=== PATIENT | female | born 1985 | race Caucasian/White ===

== ENCOUNTER 2017-01-30 13:46 | Emergency (ER) | payer BC ==
[2017-01-30] MEDS ORDERED: Sodium Chloride 0.9% 1,000 ML IV ONE ×2 (14:05→14:34)
[2017-01-30] MEDS ORDERED: LORazepam 2 MG/ML MDV IVPUSH ONE (14:05)
[2017-01-30] MEDS ORDERED: Ketorolac 30 MG/ML SDV IVPUSH ONE (14:34)
[2017-01-30] MEDS ORDERED: Ondansetron 4 MG/2 ML SDV IVPUSH ONE (14:34)
--- NOTE | 2017-01-30 14:35 | EDM.PDOC ---
ED HPI GENERAL MEDICAL PROBLEM - General Chief Complaint: Abdominal Pain Stated Complaint: ABDOMINAL PAIN Time Seen by Provider: 01/30/17 14:20 Source of Information: Reports: Patient History Limitations: Reports: No Limitations - History of Present Illness INITIAL COMMENTS - FREE TEXT/NARRATIVE: History of present illness: [1-year-old female comes in with a myriad of complaints. Indicates that she's having lower pelvic pain radiating into her abdomen that this has been ongoing. Patient indicates she also has significant depression that they're trying to find a medication that works for her as well as some amount of anxiety and infertility. Patient indicates that she is seeing multiple providers for this and when she was complaining of the abdominal pain she was directed to come to the ED for further evaluation.] Review of systems: As per history of present illness and below otherwise all systems reviewed and negative. Past medical history: As per history of present illness and as reviewed below otherwise noncontributory. Surgical history: As per history of present illness and as reviewed below otherwise noncontributory. Social history: No reported history of drug or alcohol abuse. Family history: As per history of present illness and as reviewed below otherwise noncontributory. Physical exam: HEENT: Atraumatic, normocephalic, pupils reactive, negative for conjunctival pallor or scleral icterus, mucous membranes moist, throat clear, neck supple, nontender, trachea midline. Lungs: Clear to auscultation, breath sounds equal bilaterally, chest nontender. Heart: S1S2, regular, negative for clicks, rubs, or JVD. Abdomen: Soft, nondistended, nontender. Negative for masses or hepatosplenomegaly. Negative for costovertebral tenderness. Pelvis: Stable nontender. Genitourinary: Deferred. Rectal: Deferred. Extremities: Atraumatic, negative for cords or calf pain. Neurovascular unremarkable. Neuro: Awake, alert, oriented. Cranial nerves II through XII unremarkable. Cerebellum unremarkable. Motor and sensory unremarkable throughout. Exam nonfocal. CT is negative save the presence of an ovarian cyst in the right adnexa Diagnostics: [CBC, CMP, UA, urine hCG, CT of abdomen] Therapeutics: [IV fluid, Toradol, Zofran] Impression: [Abdominal pain] Plan: [OTC pain meds] Definitive disposition and diagnosis as appropriate pending reevaluation and review of above. Chest Pain Score (Numeric/FACES): 6 epigastric pain Pain Score (Numeric/FACES): 8 - Related Data Allergies Allergy/AdvReac Type Severity Reaction Status Date / Time No Known Allergies Allergy Verified 01/30/17 13:56 Home Meds: Home Meds ClonazePAM [KlonoPIN] 0.5 mg PO BID PRN 01/30/17 [History] Methocarbamol [Robaxin] 500 mg PO TID 01/30/17 [History] PARoxetine HCl [Paroxetine HCl] 10 mg PO DAILY 01/30/17 [History] hydrOXYzine Pamoate [Hydroxyzine Pamoate] 25 mg PO QID PRN 01/30/17 [History] Past Medical History - Past Health History Medical/Surgical History: Denies Medical/Surgical History Gastrointestinal History: Reports: Other (See Below) Other Gastrointestinal History: epigastric pain 1 month Genitourinary History: Reports: None - Past Surgical History GI Surgical History: Reports: None Female Surgical History: Reports: LEEP Social & Family History - Family History Family Medical History: Noncontributory - Tobacco Use Smoking Status *Q: Never Smoker Years of Tobacco use: 15 Used Tobacco, but Quit: Yes Month Tobacco Last Used: 1 Second Hand Smoke Exposure: Yes - Caffeine Use Caffeine Use: Reports: None - Alcohol Use Days Per Week of Alcohol Use: 0 Number of Drinks Per Day: 0 Total Drinks Per Week: 0 - Recreational Drug Use Recreational Drug Use: No Drug Use in Last 12 Months: No Recreational Drug Type: Reports: Marijuana/Hashish ED ROS GENERAL - Review of Systems Review Of Systems: See Below (See history of present illness) ED EXAM, GI/ABD - Physical Exam Exam: See Below (See history of present illness) Course - Vital Signs Last Recorded V/S: Last Vital Signs Temp 37.0 C 01/30/17 13:56 Pulse 89 01/30/17 15:58 Resp 16 01/30/17 15:58 BP 120/79 01/30/17 15:58 Pulse Ox 99 01/30/17 15:58 - Orders/Labs/Meds Orders: Active Orders 24 hr Category Date Time Status EKG Documentation Completion [RC] STAT Care 01/30/17 14:04 Active Abdomen Pelvis w Cont [CT] Stat Exams 01/30/17 14:34 Taken Labs: Laboratory Tests 01/30/17 01/30/1701/30/17 Range/Units 14:08 14:08 14:08 WBC 7.16 (4.0-11.0) K/uL RBC 4.29 L (4.30-5.90) M/uL Hgb 12.7 (12.0-16.0) g/dL Hct 37.2 (36.0-46.0) % MCV 86.7 (80.0-98.0) fL MCH 29.6 (27.0-32.0) pg MCHC 34.1 (31.0-37.0) g/dL RDW Std Deviation 39.3 (28.0-62.0) fl RDW Coeff of Javier 12 (11.0-15.0) % Plt Count 226 (150-400) K/uL MPV 9.20 (7.40-12.00) fL Neut % (Auto) 64.0 (48.0-80.0) % Lymph % (Auto) 29.3 (16.0-40.0) % [place] % (Auto) 6.1 (0.0-15.0) % Eos % (Auto) 0.3 (0.0-7.0) % Baso % (Auto) 0.3 (0.0-1.5) % Neut # (Auto) 4.6 (1.4-5.7) K/uL Lymph # (Auto) 2.1 (0.6-2.4) K/uL [place] # (Auto) 0.4 (0.0-0.8) K/uL Eos # (Auto) 0.0 (0.0-0.7) K/uL Baso # (Auto) 0.0 (0.0-0.1) K/uL Nucleated RBC % 0.0 /100WBC Nucleated RBCs # 0 K/uL Sodium 140 (136-146) mmol/L Potassium 3.7 (3.5-5.1) mmol/L Chloride 109 (98-110) mmol/L Carbon Dioxide 22 (21-31) mmol/L BUN 15 (6.0-23.0) mg/dL Creatinine 0.8 (0.6-1.5) mg/dL Est Cr Clr Drug Dosing 84.29 mL/min Estimated GFR (MDRD) > 60.0 ml/min Glucose 92 (60-110) mg/dL Calcium 9.6 (8.8-10.8) mg/dL Total Bilirubin 0.4 (0.1-1.5) mg/dL AST 14 (5-40) IU/L ALT 14 (8-54) IU/L Alkaline Phosphatase 62 (40-150) Troponin I < 0.10 (0.0-0.29) NG/ML Total Protein 7.6 (6.0-8.0) g/dL Albumin 4.6 (3.5-5.0) g/dL Globulin 3.0 (2.0-3.5) g/dL Albumin/Globulin Ratio 1.5 (1.3-2.8) Urine Color Urine Appearance Urine pH (5.0-8.0) Ur Specific [place] (1.001-1.035) Urine Protein (NEGATIVE) mg/dL Urine Glucose (UA) (NEGATIVE) mg/dL Urine Ketones (NEGATIVE) mg/dL Urine Occult Blood (NEGATIVE) Urine Nitrite (NEGATIVE) Urine Bilirubin (NEGATIVE) Urine Urobilinogen (<2.0) EU/dL Ur Leukocyte Esterase (NEGATIVE) Urine RBC (0-2/HPF) Urine WBC (0-5/HPF) Ur Epithelial Cells (NONE-FEW) Amorphous Sediment (NEGATIVE) Urine Bacteria (NEGATIVE) Urine Mucus (NONE-MOD) Urine HCG, Qual (NEGATIVE) 01/30/17 01/30/17 Range/Units 14:08 14:08 WBC (4.0-11.0) K/uL RBC (4.30-5.90) M/uL Hgb (12.0-16.0) g/dL Hct (36.0-46.0) % MCV (80.0-98.0) fL MCH (27.0-32.0) pg MCHC (31.0-37.0) g/dL RDW Std Deviation (28.0-62.0) fl RDW Coeff of Javier (11.0-15.0) % Plt Count (150-400) K/uL MPV (7.40-12.00) fL Neut % (Auto) (48.0-80.0) % Lymph % (Auto) (16.0-40.0) % [place] % (Auto) (0.0-15.0) % Eos % (Auto) (0.0-7.0) % Baso % (Auto) (0.0-1.5) % Neut # (Auto) (1.4-5.7) K/uL Lymph # (Auto) (0.6-2.4) K/uL [place] # (Auto) (0.0-0.8) K/uL Eos # (Auto) (0.0-0.7) K/uL Baso # (Auto) (0.0-0.1) K/uL Nucleated RBC % /100WBC Nucleated RBCs # K/uL Sodium (136-146) mmol/L Potassium (3.5-5.1) mmol/L Chloride (98-110) mmol/L Carbon Dioxide (21-31) mmol/L BUN (6.0-23.0) mg/dL Creatinine (0.6-1.5) mg/dL Est Cr Clr Drug Dosing mL/min Estimated GFR (MDRD) ml/min Glucose (60-110) mg/dL Calcium (8.8-10.8) mg/dL Total Bilirubin (0.1-1.5) mg/dL AST (5-40) IU/L ALT (8-54) IU/L Alkaline Phosphatase (40-150) Troponin I (0.0-0.29) NG/ML Total Protein (6.0-8.0) g/dL Albumin (3.5-5.0) g/dL Globulin (2.0-3.5) g/dL Albumin/Globulin Ratio (1.3-2.8) Urine Color YELLOW Urine Appearance CLEAR Urine pH 8.5 H (5.0-8.0) Ur Specific [place] 1.015 (1.001-1.035) Urine Protein TRACE (NEGATIVE) mg/dL Urine Glucose (UA) NEGATIVE (NEGATIVE) mg/dL Urine Ketones NEGATIVE (NEGATIVE) mg/dL Urine Occult Blood NEGATIVE (NEGATIVE) Urine Nitrite NEGATIVE (NEGATIVE) Urine Bilirubin NEGATIVE (NEGATIVE) Urine Urobilinogen 0.2 (<2.0) EU/dL Ur Leukocyte Esterase NEGATIVE (NEGATIVE) Urine RBC NONE SEEN (0-2/HPF) Urine WBC 2-4 (0-5/HPF) Ur Epithelial Cells OCCASIONAL (NONE-FEW) Amorphous Sediment NOT SEEN (NEGATIVE) Urine Bacteria 1+ H (NEGATIVE) Urine Mucus NOT SEEN (NONE-MOD) Urine HCG, Qual NEGATIVE (NEGATIVE) Meds: Medications Discontinued Medications Generic Name Dose Route Start Last Admin Trade Name Arti PRN Reason Stop Dose Admin Sodium Chloride 1,000 mls @ 999 mls/hr 01/30/17 14:05 01/30/17 14:28 Normal Saline IV 01/30/17 15:05 999 mls/hr STAT ONE Administration Sodium Chloride 1,000 mls @ 999 mls/hr 01/30/17 14:34 Normal Saline IV 01/30/17 15:34 STAT ONE Iopamidol 65 ml 01/30/17 14:52 01/30/17 14:53 Isovue Multipack-370 (76%) IVPUSH 01/30/17 14:53 65 ml ONETIME STA Administration Ketorolac Tromethamine 30 mg 01/30/17 14:34 01/30/17 15:21 Toradol IVPUSH 01/30/17 14:35 30 mg ONETIME ONE Administration Lorazepam 2 mg 01/30/17 14:05 01/30/17 14:27 Ativan IVPUSH 01/30/17 14:06 2 mg ONETIME ONE Administration Ondansetron HCl 4 mg 01/30/17 14:34 01/30/17 15:21 Zofran IVPUSH 01/30/17 14:35 4 mg ONETIME ONE Administration Departure - Departure Time of Disposition: 17:20 Disposition: Home, Self-Care 01 Condition: Good Clinical Impression: Abdominal pain - Discharge Information Instructions: Abdominal Pain, Adult, [id number] Forms: ED Department Discharge Additional Instructions: The following information is given to patients seen in the emergency department who are being discharged to home. This information is to outline your options for follow-up care. We provide all patients seen in our emergency department with a follow-up referral. The need for follow-up, as well as the timing and circumstances, are variable depending upon the specifics of your emergency department visit. If you don't have a primary care physician on staff, we will provide you with a referral. We always advise you to contact your personal physician following an emergency department visit to inform them of the circumstance of the visit and for follow-up with them and/or the need for any referrals to a consulting specialist. The emergency department will also refer you to a specialist when appropriate. This referral assures that you have the opportunity for follow-up care with a specialist. All of these measure are taken in an effort to provide you with optimal care, which includes your follow-up. Under all circumstances we always encourage you to contact your private physician who remains a resource for coordinating your care. When calling for follow-up care, please make the office aware that this follow-up is from your recent emergency room visit. If for any reason you are refused follow-up, please contact the Emergency Department at and asked to speak to the emergency department charge nurse. Take medication as directed [id number] pain medicine 800 mg as much as 3 times a day can alternate heat or ice and lower pelvis no longer than 20 minutes at a time Follow-up with PCP 1-2 days Return to ED as needed as discussed - My Orders Last 24 Hours: My Active Orders 01/30/17 14:04 EKG Documentation Completion [RC] STAT 01/30/17 14:34 Abdomen Pelvis w Cont [CT] Stat - Assessment/Plan Last 24 Hours: My Active Orders 01/30/17 14:04 EKG Documentation Completion [RC] STAT 01/30/17 14:34 Abdomen Pelvis w Cont [CT] Stat
[2017-01-30 14:36] LABS: CHLORIDE,CL 109 mmol/L (98-110); SODIUM,NA 140 mmol/L (136-146)
[2017-01-30] MEDS ORDERED: Iopamidol 755 MG/ML 500 ML Multipack Bottle IVPUSH STA (14:52)
[2017-01-30 17:48] VITALS: BP 112/75
--- NOTE | 2017-01-31 16:10 | CT ---
EXAM DATE: 01/30/17 PATIENT'S AGE: 31 Patient: DARLINE CAMERON Facility: [place], [place] Site . Site : 1985 Study: CT Abdomen/Pelvis [id number] 4:55:23 PM Ordering Physician: Doctor Negron Final Report: INDICATION: Recurrent abdominal pain TECHNIQUE: CT abdomen and pelvis acquired with 75 cc Isovue 370 IV contrast. COMPARISON: January 13, 2017 FINDINGS: Lower chest: Unremarkable. Liver: Unremarkable. Spleen: Unremarkable. Pancreas: Unremarkable. Gallbladder and bile ducts: Unremarkable. Adrenal glands: Unremarkable. Kidneys: Unremarkable. GI tract: Unremarkable. Appendix is normal. Vascular structures: Unremarkable. Lymph nodes: Unremarkable. Pelvic Organs: There is a 2.4 x 1.7 cm cystic lesion in the right adnexa likely representing an ovarian cyst, new compared to the prior exam. There is a trace amount of free fluid in the pelvis, likely physiologic. Bones: Unremarkable for age. IMPRESSION: Unremarkable CT of the abdomen and pelvis. Please note that all CT scans at this facility use dose modulation, iterative reconstruction, and/or weight-based dosing when appropriate to reduce radiation dose to as low as reasonably achievable. Dictated by Susan Blount MD @ Jan 30 2017 5:12PM (Electronic Signature) Report Signed by Proxy. MTDD
== END 2017-01-30 17:44 | disposition home or self-care (01) ==
LOC: MW.ED 13:46
DX: R10.2 Pelvic and perineal pain (principal); R10.13 Epigastric pain; Z87.891 Personal history of nicotine dependence; Z79.899 Other long term (current) drug therapy
CPT/HCPCS: 36415; 74177; 80053; 81001; 81025; 84484; 85025; 93005; 96361; 96374; 96375; 99285; J1885; J2060; J2405; J7040; Q9967; 99283

== ENCOUNTER 2019-01-18 11:10 | Emergency (ER) | payer BC ==
[2019-01-18 11:24] VITALS: BP 147/85
--- NOTE | 2019-01-18 11:30 | EDM.PDOC ---
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 She mentions that she has been taking steps to become over the past year and a half; as she does have issues with infertility. She did take Clomid in August 2018. She states since that time she has noticed the symptoms that were stated above. Reports intermittent nausea, none currently. Has taken 6 at home tests; all were negative. Last normal menses October 2018. She is requesting a serum hCG. ; P:0 (miscarriage). Patient denies any fever, chills, headache, change in vision, syncope or near syncope. Denies any chest pain, back pain, shortness of breath or cough. Denies any vomiting, diarrhea, constipation or dysuria. Has not noted any blood in urine or stool. Patient has been eating and drinking appropriately. Review of systems: As per history of present illness and below otherwise all systems reviewed and negative. Past medical history: As per history of present illness and as reviewed below otherwise noncontributory. Surgical history: As per history of present illness and as reviewed below otherwise noncontributory. Social history: See social history for further information Family history: As per history of present illness and as reviewed below otherwise noncontributory. Physical exam: General: Well-developed and well-nourished 33-year-old female. Alert and oriented. Nontoxic appearing and in no acute distress. HEENT: Atraumatic, normocephalic, pupils equal and reactive bilaterally, negative for conjunctival pallor or scleral icterus, mucous membranes moist, TMs normal bilaterally, throat clear, neck supple, nontender, trachea midline. No drooling or trismus noted. No meningeal signs. No hot potato voice noted. Lungs: Clear to auscultation, breath sounds equal bilaterally, chest nontender. Heart: S1S2, regular rate and rhythm without overt murmur Abdomen: Soft, nondistended, nontender. Negative for masses or hepatosplenomegaly. Negative for costovertebral tenderness. Pelvis: Stable nontender. Genitourinary: Deferred. Rectal: Deferred. Skin: Intact, warm, dry. No lesions or rashes noted. Extremities: Atraumatic, moves all extremities per self without difficulty or deficits, negative for cords or calf pain. Neurovascular unremarkable. Neuro: Awake, alert, oriented. Cranial nerves II through XII unremarkable. Cerebellum unremarkable. Motor and sensory unremarkable throughout. Exam nonfocal. Notes: Patient's physical examination is within normal limits. She doesn't have any abdominal tenderness with palpation. She has not been running any fevers. Denies any vaginal discharge, bleeding or concerns of STDs. She states she has been following closely with her FOREST TECHNOLOGY PROFESSOR and primary care provider. Patient does have an appointment with her primary care provider on February 16, FOREST TECH[employer]OLOG[employer] PROFESSOR appointment is March 09, 2019. Lab work is unremarkable, with the exception of a urinary tract infection. A culture has been added. Encouraged her to keep her appointment she has made already. Supportive care measures were reviewed and discussed. Voices understanding and is agreeable to plan of care. Denies any further questions or concerns at this time. Diagnostics: CBC, CMP, UA, urine Therapeutics: None Prescription: Macrobid Zofran Impression: Encounter for medical screening exam Dysfunctional uterine bleeding UTI Plan: 1. Lab work was normal today. Negative test. 2. Tylenol and/or Ibuprofen as needed. Take the antibiotic for your urinary tract infection as we discussed. Increase your oral fluids. 3. Keep your follow up appointments you have made; return to the ED as needed and as discussed. Definitive disposition and diagnosis as appropriate pending reevaluation and review of above. L lower abdominal Pain Score (Numeric/FACES): 5 - Related Data Allergies Allergy/AdvReac Type Severity Reaction Status Date / Time No Known Allergies Allergy Verified 01/30/17 13:56 Home Meds: Home Meds . [No Known Home Meds] 01/18/19 [History] Past Medical History - Past Health History Medical/Surgical History: Denies Medical/Surgical History Gastrointestinal History: Reports: Other (See Below) Other Gastrointestinal History: epigastric pain 1 month Genitourinary History: Reports: None FOREST TECHNOLOGY PROFESSOR History: Reports: , Spontaneous - Past Surgical History GI Surgical History: Reports: None Female Surgical History: Reports: ZACP, Other (See Below) Other Female Surgeries/Procedures: ovarian cysts Social & Family History - Family History Family Medical History: Noncontributory - Tobacco Use Smoking Status *Q: Former Smoker Used Tobacco, but Quit: Yes Month/Year Tobacco Last Used: 2013 - Caffeine Use Caffeine Use: Reports: None - Recreational Drug Use Recreational Drug Use: No ED ROS GENERAL - Review of Systems Review Of Systems: ROS reveals no pertinent complaints other than HPI. ED EXAM, GI/ABD - Physical Exam Exam: See Below (See dictation) Course - Vital Signs Last Recorded V/S: Last Vital Signs Temp 96.8 F 01/18/19 11:20 Pulse 100 01/18/19 11:20 Resp 16 01/18/19 11:20 BP 147/85 H 01/18/19 11:20 Pulse Ox 100 01/18/19 11:20 - Orders/Labs/Meds Labs: Laboratory Tests 01/18/19 01/18/19 01/18/19 Range/Units 11:35 11:39 11:39 WBC 6.92 (4.0-11.0) K/uL RBC 4.52 (4.30-5.90) M/uL Hgb 13.3 (12.0-16.0) g/dL Hct 39.4 (36.0-46.0) % MCV 87.2 (80.0-98.0) fL MCH 29.4 (27.0-32.0) pg MCHC 33.8 (31.0-37.0) g/dL RDW Std Deviation 41.0 (28.0-62.0) fl RDW Coeff of Javier 13 (11.0-15.0) % Plt Count 281 (150-400) K/uL MPV 9.00 (7.40-12.00) fL Neut % (Auto) 55.4 (48.0-80.0) % Lymph % (Auto) 37.4 (16.0-40.0) % [place] % (Auto) 6.5 (0.0-15.0) % Eos % (Auto) 0.4 (0.0-7.0) % Baso % (Auto) 0.3 (0.0-1.5) % Neut # (Auto) 3.8 (1.4-5.7) K/uL Lymph # (Auto) 2.6 H (0.6-2.4) K/uL [place] # (Auto) 0.5 (0.0-0.8) K/uL Eos # (Auto) 0.0 (0.0-0.7) K/uL Baso # (Auto) 0.0 (0.0-0.1) K/uL Nucleated RBC % 0.0 /100WBC Nucleated RBCs # 0 K/uL Sodium 140 (136-145) mmol/L Potassium 3.6 (3.5-5.1) mmol/L Chloride 103 (98-107) mmol/L Carbon Dioxide 25.2 (21.0-32.0) mmol/L BUN 12 (7.0-18.0) mg/dL Creatinine 0.8 (0.6-1.0) mg/dL Est Cr Clr Drug Dosing 82.74 mL/min Estimated GFR (MDRD) > 60.0 ml/min Glucose 102 (74-106) mg/dL Calcium 9.1 (8.5-10.1) mg/dL Total Bilirubin 0.6 (0.2-1.0) mg/dL AST 16 (15-37) IU/L ALT 23 (14-63) IU/L Alkaline Phosphatase 67 (46-116) U/L Total Protein 8.2 (6.4-8.2) g/dL Albumin 4.4 (3.4-5.0) g/dL Globulin 3.8 (2.6-4.0) g/dL Albumin/Globulin Ratio 1.2 (0.9-1.6) HCG, Qual (NEG) Urine Color YELLOW Urine Appearance SLT CLOUDY Urine pH 6.0 (5.0-8.0) Ur Specific [place] 1.025 (1.001-1.035) Urine Protein NEGATIVE (NEGATIVE) mg/dL Urine Glucose (UA) NEGATIVE (NEGATIVE) mg/dL Urine Ketones NEGATIVE (NEGATIVE) mg/dL Urine Occult Blood TRACE-INTACT H (NEGATIVE) Urine Nitrite NEGATIVE (NEGATIVE) Urine Bilirubin NEGATIVE (NEGATIVE) Urine Urobilinogen 0.2 (<2.0) EU/dL Ur Leukocyte Esterase NEGATIVE (NEGATIVE) Urine RBC 0-3 (0-2/HPF) Urine WBC 3-5 (0-5/HPF) Ur Epithelial Cells MODERATE (NONE-FEW) Urine Bacteria 3+ H (NEGATIVE) 01/18/19 Range/Units 11:39 WBC (4.0-11.0) K/uL RBC (4.30-5.90) M/uL Hgb (12.0-16.0) g/dL Hct (36.0-46.0) % MCV (80.0-98.0) fL MCH (27.0-32.0) pg MCHC (31.0-37.0) g/dL RDW Std Deviation (28.0-62.0) fl RDW Coeff of Javier (11.0-15.0) % Plt Count (150-400) K/uL MPV (7.40-12.00) fL Neut % (Auto) (48.0-80.0) % Lymph % (Auto) (16.0-40.0) % [place] % (Auto) (0.0-15.0) % Eos % (Auto) (0.0-7.0) % Baso % (Auto) (0.0-1.5) % Neut # (Auto) (1.4-5.7) K/uL Lymph # (Auto) (0.6-2.4) K/uL [place] # (Auto) (0.0-0.8) K/uL Eos # (Auto) (0.0-0.7) K/uL Baso # (Auto) (0.0-0.1) K/uL Nucleated RBC % /100WBC Nucleated RBCs # K/uL Sodium (136-145) mmol/L Potassium (3.5-5.1) mmol/L Chloride (98-107) mmol/L Carbon Dioxide (21.0-32.0) mmol/L BUN (7.0-18.0) mg/dL Creatinine (0.6-1.0) mg/dL Est Cr Clr Drug Dosing mL/min Estimated GFR (MDRD) ml/min Glucose (74-106) mg/dL Calcium (8.5-10.1) mg/dL Total Bilirubin (0.2-1.0) mg/dL AST (15-37) IU/L ALT (14-63) IU/L Alkaline Phosphatase (46-116) U/L Total Protein (6.4-8.2) g/dL Albumin (3.4-5.0) g/dL Globulin (2.6-4.0) g/dL Albumin/Globulin Ratio (0.9-1.6) HCG, Qual NEGATIVE (NEG) Urine Color Urine Appearance Urine pH (5.0-8.0) Ur Specific [place] (1.001-1.035) Urine Protein (NEGATIVE) mg/dL Urine Glucose (UA) (NEGATIVE) mg/dL Urine Ketones (NEGATIVE) mg/dL Urine Occult Blood (NEGATIVE) Urine Nitrite (NEGATIVE) Urine Bilirubin (NEGATIVE) Urine Urobilinogen (<2.0) EU/dL Ur Leukocyte Esterase (NEGATIVE) Urine RBC (0-2/HPF) Urine WBC (0-5/HPF) Ur Epithelial Cells (NONE-FEW) Urine Bacteria (NEGATIVE) Departure - Departure Time of Disposition: 12:17 Disposition: Home, Self-Care 01 Clinical Impression: Dysfunctional uterine bleeding, Encounter for medical screening examination UTI (urinary tract infection) Qualifiers: Urinary tract infection type: acute cystitis Hematuria presence: without hematuria Qualified Code(s): N30.00 - Acute cystitis without hematuria - Discharge Information Instructions: Dysmenorrhea, [id number] Referrals: Rachna Oliveros DO [Primary Care Provider] - Forms: ED Department Discharge Additional Instructions: The following information is given to patients seen in the emergency department who are being discharged to home. This information is to outline your options for follow-up care. We provide all patients seen in our emergency department with a follow-up referral. The need for follow-up, as well as the timing and circumstances, are variable depending upon the specifics of your emergency department visit. If you don't have a primary care physician on staff, we will provide you with a referral. We always advise you to contact your personal physician following an emergency department visit to inform them of the circumstance of the visit and for follow-up with them and/or the need for any referrals to a consulting specialist. The emergency department will also refer you to a specialist when appropriate. This referral assures that you have the opportunity for follow-up care with a specialist. All of these measure are taken in an effort to provide you with optimal care, which includes your follow-up. Under all circumstances we always encourage you to contact your private physician who remains a resource for coordinating your care. When calling for follow-up care, please make the office aware that this follow-up is from your recent emergency room visit. If for any reason you are refused follow-up, please contact the [facility] Emergency Department at and asked to speak to the emergency department charge nurse. [facility] [address] [place] [id number] [facility] [address] [place] [id number] 1. Lab work was normal today. Negative test. 2. Tylenol and/or Ibuprofen as needed. Take the antibiotic for your urinary tract infection as we discussed. Increase your oral fluids. 3. Keep your follow up appointments you have made; return to the ED as needed and as discussed.
[2019-01-18 12:14] LABS: CHLORIDE,CL 103 mmol/L (98-107); SODIUM,NA 140 mmol/L (136-145)
== END 2019-01-18 12:30 | disposition home or self-care (01) ==
LOC: MW.ED 11:10
DX: N30.00 Acute cystitis without hematuria (principal); N93.8 Other specified abnormal uterine and vaginal bleeding; Z87.891 Personal history of nicotine dependence
CPT/HCPCS: 36415; 80053; 81001; 84703; 85025; 99283; 99284

== ENCOUNTER 2020-03-29 07:44 | Day surgery (SDC) | payer BC ==
[~2020-03-29 07:44] MED LIST: Lactated Ringers 1,000 ML IV SCH; Lidocaine 2% 5 ML SDV ONE; Midazolam 1 MG/ML 2 ML SDV ONE; Propofol 200 MG/20 ML SDV ONE; Sodium Chloride 0.9% 10 ML SDV IV PRN; Sodium Chloride 0.9% 10 ML Syringe FLUSH PRN; Sodium Chloride 0.9% 2.5 ML Syringe FLUSH PRN; fentaNYL 100 MCG/2 ML SDV ONE
--- NOTE | 2020-03-29 08:47 | PCM.PREANE ---
Preanesthetic Assessment - Anesthesia/Transfusion/Family Hx Anesthesia History: Prior Anesthesia Without Reaction Other Type of Anesthesia Reaction Comment: DENIES ANY PROBLEMS WITH ANESTHESIA Family History of Anesthesia Reaction: No Transfusion History: No Prior Transfusion(s) - Review of Systems General: No Symptoms Pulmonary: No Symptoms Cardiovascular: No Symptoms Gastrointestinal: Other (IBS) Neurological: No Symptoms Other: Reports: None - Physical Assessment NPO Status Date: 03/28/20 Vital Signs: Last Vital Signs Temp 97.0 F 03/29/20 08:10 Pulse 79 03/29/20 08:10 Resp 16 03/29/20 08:10 BP 110/70 03/29/20 08:10 Pulse Ox 99 03/29/20 08:10 Height: 5 ft 3 in Weight: 53.524 kg Airway Class: Mallampati = 2 Dentition: Reports: Normal Dentition ROM/Head Extension: Full Lungs: Clear to Auscultation, Normal Respiratory Effort Cardiovascular: Regular Rate, Regular Rhythm - Lab Values: Laboratory Last Values Urine HCG, Qual NEGATIVE (NEGATIVE) 03/29/20 08:02 - Allergies Allergies/Adverse Reactions: Allergies Allergy/AdvReac Type Severity Reaction Status Date / Time No Known Allergies Allergy Verified 03/27/20 13:37 - Blood Blood Available: No - Anesthesia Plan Pre-Op Medication Ordered: None - Acknowledgements Anesthesia Type Planned: General Anesthesia (tiva) Pt an Appropriate Candidate for the Planned Anesthesia: Yes Alternatives and Risks of Anesthesia Discussed w Pt/Guardian: Yes Pt/Guardian Understands and Agrees with Anesthesia Plan: Yes PreAnesthesia Questionnaire - Past Health History Medical/Surgical History: Denies Medical/Surgical History HEENT History: Reports: Other (See Below) Other HEENT History: wears glasses Gastrointestinal History: Reports: Other (See Below) Other Gastrointestinal History: currently has rectal bleeding and left sided abdominal pain Genitourinary History: Reports: None [employer]ER History: Reports: , Spontaneous Neurological History: Reports: Migraines Psychiatric History: Reports: Anxiety, Depression - Past Surgical History Head Surgeries/Procedures: Reports: None Female Surgical History: Reports: LEEP Musculoskeletal Surgical History: Reports: Carpal Tunnel - SUBSTANCE USE Smoking Status *Q: Former Smoker Tobacco Use Within Last Twelve Months: No Recreational Drug Use History: No - HOME MEDS Home Medications: Home Meds ALPRAZolam [Xanax] 0.25 mg PO ASDIRECTED PRN 03/27/20 [History] PARoxetine [Paxil] 20 mg PO BEDTIME 03/27/20 [History] Rizatriptan Benzoate [Rizatriptan] 10 mg PO ASDIRECTED PRN 03/27/20 [History] busPIRone [Buspar] 10 mg PO ASDIRECTED PRN 03/27/20 [History] - CURRENT (IN HOUSE) MEDS Current Meds: Current Medications Lactated Ringer's (Ringers, Lactated) 1,000 mls @ 125 mls/hr IV ASDIRECTED JAY Last Admin: 03/29/20 08:25 Dose: 125 mls/hr Documented by: Sodium Chloride (Saline Flush) 10 ml FLUSH ASDIRECTED PRN PRN Reason: Keep Vein Open Sodium Chloride (Saline Flush) 2.5 ml FLUSH ASDIRECTED PRN PRN Reason: Keep Vein Open Sodium Chloride (Normal Saline) 10 ml IV ASDIRECTED PRN PRN Reason: IV Use Discontinued Medications Fentanyl (Sublimaze) Confirm Administered Dose 100 mcg .ROUTE .STK-MED ONE Stop: 03/29/20 07:21 Lidocaine (Xylocaine-Mpf 2%) Confirm Administered Dose 5 ml .ROUTE .STK-MED ONE Stop: 03/29/20 07:21 Midazolam HCl (Versed 1 Mg/Ml) Confirm Administered Dose 2 mg .ROUTE .STK-MED ONE Stop: 03/29/20 07:21 Propofol (Diprivan 20 Ml) Confirm Administered Dose 400 mg .ROUTE .STK-MED ONE Stop: 03/29/20 07:21
--- NOTE | 2020-03-29 09:48 | PCM.POSTAN ---
POST ANESTHESIA ASSESSMENT - MENTAL STATUS Mental Status: Alert, Oriented - VITAL SIGNS Vital Signs: Last Vital Signs Temp 36.1 C 03/29/20 08:10 Pulse 84 03/29/20 09:42 Resp 12 03/29/20 09:42 BP 104/70 03/29/20 09:42 Pulse Ox 100 03/29/20 09:42 - RESPIRATORY Respiratory Status: Respiratory Rate WNL, Airway Patent, O2 Saturation Stable - CARDIOVASCULAR CV Status: Pulse Rate WNL, Blood Pressure Stable - GASTROINTESTINAL GI Status: No Symptoms - POST OP HYDRATION Hydration Status: Adequate & Stable
[2020-03-29 09:52] VITALS: BP 125/59; PULSE 83
--- NOTE | 2020-03-29 10:04 | PCM.OPNOTE ---
- General Post-Op/Procedure Note Date of Surgery/Procedure: 03/29/20 Operative Procedure(s): egd w bx. colonoscopy w bx Findings: see [id number] Pre Op Diagnosis: abd pain Post-Op Diagnosis: Same Anesthesia Technique: Moderate Sedation Primary Surgeon: Tl Yousif Complications: None Condition: Good Free Text/Narrative:: Intake & Output 03/28/20 03/29/20 03/29/20 22:59 06:59 14:59 Intake Total 800 Balance 800
--- NOTE | 2020-03-29 10:29 | PCM48HPAN ---
Post Anesthesia Note - EVALUATION WITHIN 48HRS OF ANESTHETIC Vital Signs in Normal Range: Yes Patient Participated in Evaluation: Yes Respiratory Function Stable: Yes Airway Patent: Yes Cardiovascular Function Stable: Yes Hydration Status Stable: Yes Pain Control Satisfactory: Yes Nausea and Vomiting Control Satisfactory: Yes Mental Status Recovered: Yes Vital Signs: Last Vital Signs Temp 97.2 F 03/29/20 09:47 Pulse 83 03/29/20 09:47 Resp 16 03/29/20 09:47 BP 125/59 L 03/29/20 09:47 Pulse Ox 99 03/29/20 09:47
--- NOTE | 2020-03-29 13:23 | OR ---
SURGEON: Tl Yousif MD DATE OF PROCEDURE: 03/29/2020 PREOPERATIVE DIAGNOSIS: Abdominal pain. POSTOPERATIVE DIAGNOSIS: Abdominal pain. PROCEDURES PERFORMED: Esophagogastroduodenoscopy with biopsy and colonoscopy with random biopsy. DESCRIPTION OF PROCEDURE: EGD: The patient was taken to the endoscopy room, and with the [facility], Diprivan was administered. A well-lubricated EGD scope was gently inserted through the oropharynx, down the esophagus, passing through the gastroesophageal junction, into the stomach. The mucosa was examined upon the passage. Any etiology will be noted. Once in the stomach, we continued to advance to the distal antrum, passed through the pylorus into the second portion of the duodenum. Again, the mucosa was examined for any abnormality and etiology. The scope was then retrieved back to the stomach and then retroflexed to look at the fundus of the stomach. If a biopsy was indicated, we will biopsy the antrum, body, and gastroesophageal junction. The air will be sucked out while the scope is retrieved to reduce the patient's discomfort. The patient tolerated the procedure well. There were no intraoperative complications. Dr. Yousif was present through the whole procedure. Prior to surgery, a time-out had been called, the patient identified, procedure identified and antibiotic administered. The patient was taken to the endoscopy room. A time out was called, patient identified, and procedure identified. Diprivan was then administrated. Patient went from awake to sleep, hearing doctor talking or door closing is normal. Perineum inspection and digital examination were then performed. A well- lubricated colonoscope was gently inserted through the rectum, advanced past the rectosigmoid junction, the descending colon, splenic flexure, transverse colon, hepatic flexure, ascending colon, arrived to the cecum. Cecum was identified as dictated in the finding. Then the scope was carefully withdrawn while attention was paid to the mucosal surface for any abnormality. Air will be sucked out during the scope withdrawal. At the rectum, retroflexed to examine any rectal diseases, fistula or hemorrhoids. During mucosal examination, abnormality or polyp was noted; picture taken and biopsy performed. Patient tolerated procedure well. There were no intraoperative complications, and Dr. Yousif was present throughout the whole procedure. FINDINGS: EGD findings: 1. The patient is easily sedated with [facility] [employer] and Diprivan, the patient is soundly snoring. 2. Oropharynx and proximal esophagus are free of disease, stricture, inflammation. GE junction at 40 shows mild salmon-colored change, suggests mild acid reflux. Stomach rugae are normal in appearance. Antrum looks normal. Duodenum looks grossly normal. Retroflexed look at the fundus of stomach, there is no hiatal hernia. Biopsy done at antrum, body, GE junction at 40 and sucked out the gas while scope pulling out. During the whole study, there is no food particle, bile, ulcer, or bleeding observed. Colonoscopy findings: 1. The patient is easily sedated with [facility] [employer] and Diprivan, the patient is soundly snoring. 2. Bowel prep is average with some liquid stool, no semi-formed stool. Colon rather straightforward. Cecum indicated by ileocecal fold, one-to-one indentation, appendiceal orifice. ScopeGuide is pointing south. Light emittance not observed. Mucosa examined upon scope pulling out. The patient does not have diverticulosis, polyp, mass, growth, inflammation, stricture, ulceration, AV malformation, none of those. The patient has mild internal hemorrhoid, no external hemorrhoid. Random biopsy was performed because of abdominal pain and next colonoscopy will depend on the biopsy results. SEMAJ / CHERRI /[id number]
== END 2020-03-29 10:40 | disposition home or self-care (01) ==
LOC: MW.SDS 07:44
PROVIDERS: ATTEND Surgery
DX: K64.8 Other hemorrhoids (principal); K22.8 Other specified diseases of esophagus; F41.9 Anxiety disorder, unspecified; F32.9 Major depressive disorder, single episode, unspecified; K58.9 Irritable bowel syndrome, unspecified; Z79.899 Other long term (current) drug therapy; Z87.891 Personal history of nicotine dependence; Z80.0 Family history of malignant neoplasm of digestive organs
CPT/HCPCS: 43239; 45380; 81025; 88305; 88312; J2001; J2250; J2704; J3010; J7120

== ENCOUNTER 2021-02-26 19:41 | Day surgery (SDC) | payer BC ==
[2021-02-26] MEDS ORDERED: Sodium Chloride 0.9% 1,000 ML IV ONE (20:08)
[2021-02-26] MEDS ORDERED: Ondansetron 4 MG/2 ML SDV IVPUSH ONE (20:08)
[2021-02-26] MEDS ORDERED: Morphine 4 MG/ML Syringe IVPUSH ONE (20:09)
[2021-02-26 20:45] LABS: BLOOD UREA NITROGEN,BUN 12 mg/dL (7.0-18.0); CARBON DIOXIDE,CO2 27.1 mmol/L (21.0-32.0); CHLORIDE,CL 103 mmol/L (98-107); GLUCOSE RANDOM 111 mg/dL (74-106); LIPASE 60 U/L (73-393); SODIUM,NA 138 mmol/L (136-145)
[2021-02-26] MEDS ORDERED: Iopamidol 755 Mg/ML 100 ML Bottle IVPUSH ONE (20:49)
--- NOTE | 2021-02-26 21:06 | EDM.PDOC ---
ED HPI GENERAL MEDICAL PROBLEM - General Chief Complaint: Abdominal Pain Stated Complaint: RT SIDE ABDOMINAL PAIN, NAUSEA Time Seen by Provider: 02/26/21 20:00 Source of Information: Reports: Patient History Limitations: Reports: No Limitations - History of Present Illness INITIAL COMMENTS - FREE TEXT/NARRATIVE: HISTORY AND PHYSICAL: History of present illness: Patient is a 35-year-old female who presents emergency room today with concern of right lower quadrant abdominal pain and nausea that began this afternoon. Patient states that she has not had any episodes of vomiting but she has been feeling like she might at any time. Patient denies any history of any abdominal surgeries. Patient states she does not believe to be as she is on Depo-Provera and takes this as scheduled. Patient states with Depo, she does not get menstrual cycles. Patient denies any health history or any other symptoms or concerns. Patient denies fever, chills, chest pain, shortness of breath, or cough. Denies headache, neck stiff ness, change in vision, syncope, or near syncope. Denies vomiting, diarrhea, constipation, or dysuria. Has not noted any blood in urine or stool. Patient has been eating and drinking appropriately. Review of systems: As per history of present illness and below otherwise all systems reviewed and negative. Past medical history: As per history of present illness and as reviewed below otherwise noncontributory. Surgical history: As per history of present illness and as reviewed below otherwise noncontributory. Social history: See social history for further information Family history: As per history of present illness and as reviewed below otherwise noncontributory. Physical exam: General: Patient is alert, oriented, and in no acute distress. Patient laying comfortably on exam table, tired appearing. Vitals stable and reviewed by me. HEENT: Atraumatic, normocephalic, pupils equal and reactive bilaterally, negative for conjunctival pallor or scleral icterus, mucous membranes moist, TMs normal bilaterally, throat clear, neck supple, nontender, trachea midline. No drooling or trismus noted. No meningeal signs. No hot potato voice noted. Lungs: Clear to auscultation, breath sounds equal bilaterally, chest nontender. Heart: S1S2, regular rate and rhythm without overt murmur Abdomen: Soft, nondistended, moderate RLQ tenderness. Negative for masses or hepatosplenomegaly. Negative for costovertebral tenderness. Pelvis: Stable nontender. Genitourinary: Deferred. Rectal: Deferred. Skin: Intact, warm, dry. No lesions or rashes noted. Extremities: Atraumatic, negative for cords or calf pain. Neurovascular unremarkable. Neuro: Awake, alert, oriented. Cranial nerves II through XII unremarkable. Cerebellum unremarkable. Motor and sensory unremarkable throughout. Exam nonfocal. Notes: Patient is a 35-year-old female who presents emergency room today with concern of right lower quadrant pain and nausea starting today. Upon arrival to the ED, patient is vitally stable and tired appearing on exam. Patient does note to have a moderate right lower quadrant tenderness on exam. Will obtain lab work with a scan to obtain abdominal pelvic CT scan with contrast. CBC shows a leukocytosis at 17.88, otherwise mild derangements of CBC unremarkable. CMP mild derangements unremarkable. Lactate within normal limits. hCG is negative. Urinalysis clear of infection. Abdominal pelvic CT scan showing acute appendicitis. I did call and speak to the general surgeon on-call, Dr. Vigil, and thoroughly discussed patient's case. Will admit to Dr. Vigil, general surgery Voices understanding and is agreeable to plan of care. Denies any further questions or concerns at this time. Diagnostics: CBC, CMP, UA, Serum hcg, lipase, Lactate, Blood cultures x 2, Abd/Pelvic CT w cont, COVID Therapeutics: NS, Zofran, Morphine, Zosyn Impression: Acute appendicitis Plan: Admit to Dr. Vigil, general surgery Definitive disposition and diagnosis as appropriate pending reevaluation and review of above. Right Upper Abdomen Pain Score (Numeric/FACES): 9 - Related Data Allergies Allergy/AdvReac Type Severity Reaction Status Date / Time No Known Allergies Allergy Verified 03/27/20 13:37 Home Meds: Home Meds ALPRAZolam [Xanax] 0.25 mg PO ASDIRECTED PRN 03/27/20 [History] PARoxetine [Paxil] 20 mg PO BEDTIME 03/27/20 [History] Rizatriptan Benzoate [Rizatriptan] 10 mg PO ASDIRECTED PRN 03/27/20 [History] busPIRone [Buspar] 10 mg PO ASDIRECTED PRN 03/27/20 [History] Past Medical History - Past Health History Medical/Surgical History: Denies Medical/Surgical History HEENT History: Reports: Other (See Below) Other HEENT History: wears glasses Gastrointestinal History: Reports: Other (See Below) Other Gastrointestinal History: currently has rectal bleeding and left sided abdominal pain Genitourinary History: Reports: None 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: , 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 Neurological History: Reports: Migraines Psychiatric History: Reports: Anxiety, Depression - Past Surgical History Head Surgeries/Procedures: Reports: None GI Surgical History: Reports: None Female Surgical History: Reports: LEEP Other Female Surgeries/Procedures: ovarian cysts Musculoskeletal Surgical History: Reports: Carpal Tunnel Social & Family History - Family History Family Medical History: No Pertinent Family History - Tobacco Use Tobacco Use Status *Q: Never Tobacco User Second Hand Smoke Exposure: No - Caffeine Use Caffeine Use: Reports: None - Recreational Drug Use Recreational Drug Use: Yes Drug Use in Last 12 Months: Yes Recreational Drug Type: Reports: Marijuana/Hashish Recreational Drug Use Frequency: Weekly ED ROS GENERAL - Review of Systems Review Of Systems: Comprehensive ROS is negative, except as noted in HPI. ED EXAM, GENERAL - Physical Exam Exam: See Below (see dictation) Course - Vital Signs Last Recorded V/S: Last Vital Signs Temp 98.5 F 02/26/21 19:53 Pulse 94 02/26/21 19:53 Resp 16 02/26/21 19:53 BP 151/96 H 02/26/21 19:53 Pulse Ox 98 02/26/21 19:53 - Orders/Labs/Meds Orders: Active Orders 24 hr Category Date Time Status Admission Status [Patient Status] [ADT] Stat ADT 02/26/21 22:56 Active Notify Provider Consults [RC] ASDIRECTED Care 02/26/21 22:53 Active Consult to Physician [CONS] Stat Cons 02/26/21 22:52 Active CORONAVIRUS COVID-19 [facility]ACE [MOLEC] Stat Lab 02/26/21 22:51 Ordered CULTURE BLOOD [BC] Stat Lab 02/26/21 21:00 Received CULTURE BLOOD [BC] Stat Lab 02/26/21 21:40 Received Piperacillin/Tazobactam [Piperacil-Tazobact] 3.375 gm Med 02/26/21 22:52 Active Sodium Chloride 0.9% [Normal Saline] 50 ml IV ONETIME Blood Culture x2 Reflex Set [OM.PC] Stat Oth 02/26/21 20:50 Ordered Medication Orders Piperacillin Sod/Tazobactam (Sod 3.375 gm/ Sodium Chloride) 50 mls @ 100 mls/hr IV ONETIME ONE Stop: 02/26/21 23:21 Labs: Laboratory Tests 02/26/21 02/26/21 02/26/21 Range/Units 20:00 20:10 20:10 WBC 17.88 H (4.0-11.0) K/uL RBC 4.59 (4.30-5.90) M/uL Hgb 13.8 (12.0-16.0) g/dL Hct 39.8 (36.0-46.0) % MCV 86.7 (80.0-98.0) fL MCH 30.1 (27.0-32.0) pg MCHC 34.7 (31.0-37.0) g/dL RDW Std Deviation 41.4 (28.0-62.0) fl RDW Coeff of Javier 13 (11.0-15.0) % Plt Count 317 (150-400) K/uL MPV 9.00 (7.40-12.00) fL Neut % (Auto) 79.8 (48.0-80.0) % Lymph % (Auto) 15.5 L (16.0-40.0) % Cooke % (Auto) 4.3 (0.0-15.0) % Eos % (Auto) 0.2 (0.0-7.0) % Baso % (Auto) 0.2 (0.0-1.5) % Neut # (Auto) 14.3 H (1.4-5.7) K/uL Lymph # (Auto) 2.8 H (0.6-2.4) K/uL Cooke # (Auto) 0.8 (0.0-0.8) K/uL Eos # (Auto) 0.0 (0.0-0.7) K/uL Baso # (Auto) 0.0 (0.0-0.1) K/uL Nucleated RBC % 0.0 /100WBC Nucleated RBCs # 0 K/uL Sodium 138 (136-145) mmol/L Potassium 4.0 (3.5-5.1) mmol/L Chloride 103 (98-107) mmol/L Carbon Dioxide 27.1 (21.0-32.0) mmol/L BUN 12 (7.0-18.0) mg/dL Creatinine 1.0 (0.6-1.0) mg/dL Est Cr Clr Drug Dosing 62.10 mL/min Estimated GFR (MDRD) > 60.0 ml/min Glucose 111 H (74-106) mg/dL Lactic Acid (0.4-2.0) mmol/L Calcium 9.3 (8.5-10.1) mg/dL Total Bilirubin 0.5 (0.2-1.0) mg/dL AST 16 (15-37) IU/L ALT 27 (14-63) IU/L Alkaline Phosphatase 86 (46-116) U/L Total Protein 7.8 (6.4-8.2) g/dL Albumin 4.3 (3.4-5.0) g/dL Globulin 3.5 (2.6-4.0) g/dL Albumin/Globulin Ratio 1.2 (0.9-1.6) Lipase 60 L (73-393) U/L HCG, Qual (NEG) Urine Color YELLOW Urine Appearance CLEAR Urine pH 7.0 (5.0-8.0) Ur Specific Valmy 1.025 (1.001-1.035) Urine Protein NEGATIVE (NEGATIVE) mg/dL Urine Glucose (UA) NEGATIVE (NEGATIVE) mg/dL Urine Ketones NEGATIVE (NEGATIVE) mg/dL Urine Occult Blood NEGATIVE (NEGATIVE) Urine Nitrite NEGATIVE (NEGATIVE) Urine Bilirubin NEGATIVE (NEGATIVE) Urine Urobilinogen 0.2 (<2.0) EU/dL Ur Leukocyte Esterase NEGATIVE (NEGATIVE) 02/26/21 02/26/21 Range/Units 20:10 21:00 WBC (4.0-11.0) K/uL RBC (4.30-5.90) M/uL Hgb (12.0-16.0) g/dL Hct (36.0-46.0) % MCV (80.0-98.0) fL MCH (27.0-32.0) pg MCHC (31.0-37.0) g/dL RDW Std Deviation (28.0-62.0) fl RDW Coeff of Javier (11.0-15.0) % Plt Count (150-400) K/uL MPV (7.40-12.00) fL Neut % (Auto) (48.0-80.0) % Lymph % (Auto) (16.0-40.0) % Cooke % (Auto) (0.0-15.0) % Eos % (Auto) (0.0-7.0) % Baso % (Auto) (0.0-1.5) % Neut # (Auto) (1.4-5.7) K/uL Lymph # (Auto) (0.6-2.4) K/uL Cooke # (Auto) (0.0-0.8) K/uL Eos # (Auto) (0.0-0.7) K/uL Baso # (Auto) (0.0-0.1) K/uL Nucleated RBC % /100WBC Nucleated RBCs # K/uL Sodium (136-145) mmol/L Potassium (3.5-5.1) mmol/L Chloride (98-107) mmol/L Carbon Dioxide (21.0-32.0) mmol/L BUN (7.0-18.0) mg/dL Creatinine (0.6-1.0) mg/dL Est Cr Clr Drug Dosing mL/min Estimated GFR (MDRD) ml/min Glucose (74-106) mg/dL Lactic Acid 0.9 (0.4-2.0) mmol/L Calcium (8.5-10.1) mg/dL Total Bilirubin (0.2-1.0) mg/dL AST (15-37) IU/L ALT (14-63) IU/L Alkaline Phosphatase (46-116) U/L Total Protein (6.4-8.2) g/dL Albumin (3.4-5.0) g/dL Globulin (2.6-4.0) g/dL Albumin/Globulin Ratio (0.9-1.6) Lipase (73-393) U/L HCG, Qual NEGATIVE (NEG) Urine Color Urine Appearance Urine pH (5.0-8.0) Ur Specific Valmy (1.001-1.035) Urine Protein (NEGATIVE) mg/dL Urine Glucose (UA) (NEGATIVE) mg/dL Urine Ketones (NEGATIVE) mg/dL Urine Occult Blood (NEGATIVE) Urine Nitrite (NEGATIVE) Urine Bilirubin (NEGATIVE) Urine Urobilinogen (<2.0) EU/dL Ur Leukocyte Esterase (NEGATIVE) Meds: Medications Generic Name Dose Route Start Last Admin Trade Name Freq PRN Reason Stop Dose Admin Piperacillin Sod/Tazobactam 50 mls @ 100 mls/hr 02/26/21 22:52 Sod 3.375 gm/ Sodium Chloride IV 02/26/21 23:21 ONETIME ONE Discontinued Medications Generic Name Dose Route Start Last Admin Trade Name Freq PRN Reason Stop Dose Admin Sodium Chloride 1,000 mls @ 999 mls/hr 02/26/21 20:08 02/26/21 20:20 Normal Saline IV 02/26/21 21:08 999 mls/hr BOLUS ONE Administration Iopamidol 100 ml 02/26/21 20:49 02/26/21 21:19 Iopamidol 755 Mg/Ml 100 Ml Bottle IVPUSH 02/26/21 20:50 100 ml ONETIME ONE Administration Morphine Sulfate 4 mg 02/26/21 20:09 02/26/21 20:21 Morphine 4 Mg/Ml Syringe IVPUSH 02/26/21 20:10 4 mg ONETIME ONE Administration Ondansetron HCl 4 mg 02/26/21 20:08 02/26/21 20:21 Ondansetron 4 Mg/2 Ml Sdv IVPUSH 02/26/21 20:09 4 mg ONETIME ONE Administration Departure - Departure Time of Disposition: 23:00 Disposition: Still A Patient 30 Clinical Impression: Acute appendicitis Qualifiers: Acute appendicitis type: unspecified acute appendicitis type Qualified Code(s): K35.80 - Unspecified acute appendicitis - Discharge Information Referrals: Rachna Oliveros DO [Primary Care Provider] - Forms: ED Department Discharge Sepsis Event Note (ED) - Evaluation Sepsis Screening Result: No Definite Risk - Focused Exam Vital Signs: Vital Signs Temp Pulse Resp BP Pulse Ox 02/26/21 19:53 98.5 F 94 16 151/96 H 98 - My Orders Last 24 Hours: My Active Orders 02/26/21 20:50 Blood Culture x2 Reflex Set [OM.PC] Stat 02/26/21 21:00 CULTURE BLOOD [BC] Stat 02/26/21 21:40 CULTURE BLOOD [BC] Stat 02/26/21 22:51 CORONAVIRUS COVID-19 [facility] [MOLEC] Stat 02/26/21 22:52 Consult to Physician [CONS] Stat Piperacillin/Tazobactam [Piperacil-Tazobact] 3.375 gm Sodium Chloride 0.9% [Normal Saline] 50 ml IV ONETIME 02/26/21 22:53 Notify Provider Consults [RC] ASDIRECTED 02/26/21 22:56 Admission Status [Patient Status] [ADT] Stat - Assessment/Plan Last 24 Hours: My Active Orders 02/26/21 20:50 Blood Culture x2 Reflex Set [OM.PC] Stat 02/26/21 21:00 CULTURE BLOOD [BC] Stat 02/26/21 21:40 CULTURE BLOOD [BC] Stat 02/26/21 22:51 CORONAVIRUS COVID-19 [facility] [MOLEC] Stat 02/26/21 22:52 Consult to Physician [CONS] Stat Piperacillin/Tazobactam [Piperacil-Tazobact] 3.375 gm Sodium Chloride 0.9% [Normal Saline] 50 ml IV ONETIME 02/26/21 22:53 Notify Provider Consults [RC] ASDIRECTED 02/26/21 22:56 Admission Status [Patient Status] [ADT] Stat
[2021-02-26] MEDS ORDERED: Piperacillin/Tazobactam 3.375 GM in Sodium Chloride 0.9% 50 ML IV ONE (22:52)
--- NOTE | 2021-02-26 22:53 | CT ---
INDICATION: Right lower quadrant pain. CT ABDOMEN AND PELVIS WITH CONTRAST TECHNIQUE: Multidetector CT imaging was performed through the abdomen and pelvis following intravenous contrast administration using 100 mL Isovue 370. Coronal and sagittal reconstructions were generated. COMPARISON: 01/30/2017 CT abdomen and pelvis. FINDINGS: Lower chest: Lung bases are clear. Liver: Unremarkable aside from a tiny subcentimeter hypodensity in the right hepatic lobe on image 48 of series 201 which is not well characterized but likely benign. Gallbladder and bile ducts: No gallbladder wall thickening or calcified gallstones. No biliary dilation identified. Pancreas: Unremarkable. Spleen: Normal. Adrenals: No nodules or masses. Kidneys, ureters, and urinary bladder: No renal masses or hydronephrosis. No bladder mass or definite wall thickening. Gastrointestinal tract: Normal caliber bowel without wall thickening. Prominent appendix measuring 8 millimeters in diameter with diffuse wall thickening and periappendiceal fat stranding, consistent with appendicitis. Vascular structures: Normal caliber abdominal aorta. Minimal common iliac artery atherosclerotic changes, greatest on the left. Peritoneum: Trace free fluid in the low pelvis. No loculated collection suggestive of abscess. No free air identified. Lymph nodes: No pathologically enlarged nodes identified. Reproductive organs: No pelvic masses. Bones: Normal for age. IMPRESSION: Acute appendicitis. No appendiceal perforation or abscess identified. PELON TORO MD [facility] Dictated by Issa Toro MD @ 02/26/2021 10:50:35 PM Please note that all CT scans at this facility use dose modulation, iterative reconstruction, and/or weight-based dosing when appropriate to reduce radiation dose to as low as reasonably achievable. Dictated by: Issa Toro MD @ 02/26/2021 22:50:52 (Electronically Signed)
[2021-02-26] MEDS ORDERED: Sodium Chloride 0.9% 1,000 ML IV SCH (23:15)
[2021-02-27] MEDS ORDERED: Ondansetron 4 MG/2 ML SDV IVPUSH PRN ×2 (00:51→07:05)
[2021-02-27] MEDS ORDERED: Scopolamine 1.5 MG Transdermal Patch TRDERM PRN (00:51)
[2021-02-27] MEDS ORDERED: Lactated Ringers 1,000 ML IV SCH (01:00)
[2021-02-27] MEDS: HYDROmorphone 1 MG/ML Syringe IVPUSH PRN ×2 (02:01→06:29)
[2021-02-27] MEDS ORDERED: Piperacillin/Tazobactam 3.375 GM in Sodium Chloride 0.9% 50 ML IV SCH (05:00)
[2021-02-27] MEDS ORDERED: HYDROmorphone 2 MG/ML Syringe IVPUSH PRN (07:05)
[2021-02-27] MEDS ORDERED: Naloxone 0.4 MG/ML Syringe IVPUSH PRN (07:05)
[2021-02-27] MEDS ORDERED: Metoclopramide 10 MG/2 ML SDV IVPUSH PRN (07:05)
[2021-02-27] MEDS ORDERED: Morphine 2 MG/ML SYRINGE IVPUSH PRN (07:05)
[2021-02-27] MEDS ORDERED: Albuterol 0.083% 2.5 MG/3 ML Neb Soln NEB PRN (07:05)
[2021-02-27] MEDS ORDERED: fentaNYL 100 MCG/2 ML SDV IVPUSH PRN (07:05)
[2021-02-27] MEDS ORDERED: Lidocaine 2% 5 ML SDV ONE (07:19)
[2021-02-27] MEDS ORDERED: Sugammadex Sodium 200 MG/2 ML VIAL ONE (07:19)
[2021-02-27] MEDS ORDERED: Ondansetron 4 MG/2 ML SDV ONE (07:19)
[2021-02-27] MEDS ORDERED: Rocuronium Bromide 50 MG/5 ML Syringe ONE (07:19)
[2021-02-27] MEDS ORDERED: Dexamethasone 4 MG/ML 5 ML MDV ONE (07:19)
[2021-02-27] MEDS ORDERED: Midazolam 1 MG/ML 2 ML SDV ONE (07:20)
[2021-02-27] MEDS ORDERED: fentaNYL 100 MCG/2 ML SDV ONE (07:20)
[2021-02-27] MEDS ORDERED: Propofol 200 MG/20 ML SDV ONE (07:20)
--- NOTE | 2021-02-27 07:24 | PCM.PREANE ---
Preanesthetic Assessment - Anesthesia/Transfusion/Family Hx Anesthesia History: Prior Anesthesia Without Reaction Other Type of Anesthesia Reaction Comment: DENIES ANY PROBLEMS WITH ANESTHESIA Transfusion History: No Prior Transfusion(s) - Review of Systems General: No Symptoms Pulmonary: No Symptoms Cardiovascular: No Symptoms Gastrointestinal: No Symptoms Neurological: No Symptoms, Headache Other: Reports: None - Physical Assessment NPO Status Date: 02/27/21 NPO Status Time: 00:00 Vital Signs: Last Vital Signs Temp 97.4 F 02/27/21 06:15 Pulse 70 02/27/21 06:15 Resp 20 02/27/21 06:15 BP 101/67 02/27/21 06:15 Pulse Ox 98 02/27/21 06:15 Height: 5 ft 2 in Weight: 171 lb 6.4 oz ASA Class: 2E Mental Status: Alert & Oriented x3 Airway Class: Mallampati = 2 Dentition: Reports: Normal Dentition Thyro-Mental Finger Breadths: 3 Mouth Opening Finger Breadths: 3 ROM/Head Extension: Full Lungs: Clear to Auscultation, Normal Respiratory Effort Cardiovascular: Regular Rate, Regular Rhythm - Lab Values: Laboratory Last Values WBC 17.88 K/uL (4.0-11.0) H 02/26/21 20:10 RBC 4.59 M/uL (4.30-5.90) 02/26/21 20:10 Hgb 13.8 g/dL (12.0-16.0) 02/26/21 20:10 Hct 39.8 % (36.0-46.0) 02/26/21 20:10 MCV 86.7 fL (80.0-98.0) 02/26/21 20:10 MCH 30.1 pg (27.0-32.0) 02/26/21 20:10 MCHC 34.7 g/dL (31.0-37.0) 02/26/21 20:10 RDW Std Deviation 41.4 fl (28.0-62.0) 02/26/21 20:10 RDW Coeff of Javier 13 % (11.0-15.0) 02/26/21 20:10 Plt Count 317 K/uL (150-400) 02/26/21 20:10 MPV 9.00 fL (7.40-12.00) 02/26/21 20:10 Neut % (Auto) 79.8 % (48.0-80.0) 02/26/21 20:10 Lymph % (Auto) 15.5 % (16.0-40.0) L 02/26/21 20:10 [place] % (Auto) 4.3 % (0.0-15.0) 02/26/21 20:10 Eos % (Auto) 0.2 % (0.0-7.0) 02/26/21 20:10 Baso % (Auto) 0.2 % (0.0-1.5) 02/26/21 20:10 Neut # (Auto) 14.3 K/uL (1.4-5.7) H 02/26/21 20:10 Lymph # (Auto) 2.8 K/uL (0.6-2.4) H 02/26/21 20:10 [place] # (Auto) 0.8 K/uL (0.0-0.8) 02/26/21 20:10 Eos # (Auto) 0.0 K/uL (0.0-0.7) 02/26/21 20:10 Baso # (Auto) 0.0 K/uL (0.0-0.1) 02/26/21 20:10 Nucleated RBC % 0.0 /100WBC 02/26/21 20:10 Nucleated RBCs # 0 K/uL 02/26/21 20:10 Sodium 138 mmol/L (136-145) 02/26/21 20:10 Potassium 4.0 mmol/L (3.5-5.1) 02/26/21 20:10 Chloride 103 mmol/L (98-107) 02/26/21 20:10 Carbon Dioxide 27.1 mmol/L (21.0-32.0) 02/26/21 20:10 BUN 12 mg/dL (7.0-18.0) 02/26/21 20:10 Creatinine 1.0 mg/dL (0.6-1.0) 02/26/21 20:10 Est Cr Clr Drug Dosing 62.10 mL/min 02/26/21 20:10 Estimated GFR (MDRD) > 60.0 ml/min 02/26/21 20:10 Glucose 111 mg/dL (74-106) H 02/26/21 20:10 Lactic Acid 0.9 mmol/L (0.4-2.0) 02/26/21 21:00 Calcium 9.3 mg/dL (8.5-10.1) 02/26/21 20:10 Total Bilirubin 0.5 mg/dL (0.2-1.0) 02/26/21 20:10 AST 16 IU/L (15-37) 02/26/21 20:10 ALT 27 IU/L (14-63) 02/26/21 20:10 Alkaline Phosphatase 86 U/L (46-116) 02/26/21 20:10 Total Protein 7.8 g/dL (6.4-8.2) 02/26/21 20:10 Albumin 4.3 g/dL (3.4-5.0) 02/26/21 20:10 Globulin 3.5 g/dL (2.6-4.0) 02/26/21 20:10 Albumin/Globulin Ratio 1.2 (0.9-1.6) 02/26/21 20:10 Lipase 60 U/L (73-393) L 02/26/21 20:10 HCG, Qual NEGATIVE (NEG) 02/26/21 20:10 Urine Color YELLOW 02/26/21 20:00 Urine Appearance CLEAR 02/26/21 20:00 Urine pH 7.0 (5.0-8.0) 02/26/21 20:00 Ur Specific [place] 1.025 (1.001-1.035) 02/26/21 20:00 Urine Protein NEGATIVE mg/dL (NEGATIVE) 02/26/21 20:00 Urine Glucose (UA) NEGATIVE mg/dL (NEGATIVE) 02/26/21 20:00 Urine Ketones NEGATIVE mg/dL (NEGATIVE) 02/26/21 20:00 Urine Occult Blood NEGATIVE (NEGATIVE) 02/26/21 20:00 Urine Nitrite NEGATIVE (NEGATIVE) 02/26/21 20:00 Urine Bilirubin NEGATIVE (NEGATIVE) 02/26/21 20:00 Urine Urobilinogen 0.2 EU/dL (<2.0) 02/26/21 20:00 Ur Leukocyte Esterase NEGATIVE (NEGATIVE) 02/26/21 20:00 SARS-CoV-2 RNA (PEACE) NEGATIVE (NEGATIVE) 02/26/21 22:55 - Allergies Allergies/Adverse Reactions: Allergies Allergy/AdvReac Type Severity Reaction Status Date / Time No Known Allergies Allergy Verified 03/27/20 13:37 - Anesthesia Plan Pre-Op Medication Ordered: Other (scopolamine) - Acknowledgements Anesthesia Type Planned: General Anesthesia Pt an Appropriate Candidate for the Planned Anesthesia: Yes Alternatives and Risks of Anesthesia Discussed w Pt/Guardian: Yes Pt/Guardian Understands and Agrees with Anesthesia Plan: Yes PreAnesthesia Questionnaire - Past Health History Medical/Surgical History: Denies Medical/Surgical History HEENT History: Reports: Other (See Below) Other HEENT History: wears glasses Gastrointestinal History: Reports: GI Bleed, Other (See Below) Other Gastrointestinal History: Left sided abdominal pain Genitourinary History: Reports: None 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: , 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 Neurological History: Reports: Migraines Psychiatric History: Reports: Anxiety, Depression - Past Surgical History Head Surgeries/Procedures: Reports: None GI Surgical History: Reports: None Female Surgical History: Reports: LEEP Other Female Surgeries/Procedures: ovarian cysts Neurological Surgical History: Reports: None Musculoskeletal Surgical History: Reports: Carpal Tunnel - SUBSTANCE USE Tobacco Use Status *Q: Former Tobacco User Tobacco Use Within Last Twelve Months: No Second Hand Smoke Exposure: No Recreational Drug Use History: No Recreational Drug Type: Reports: Marijuana/Hashish - HOME MEDS Home Medications: Home Meds ALPRAZolam [Xanax] 0.25 mg PO ASDIRECTED PRN 03/27/20 [History] PARoxetine [Paxil] 20 mg PO BEDTIME 03/27/20 [History] Rizatriptan Benzoate [Rizatriptan] 10 mg PO ASDIRECTED PRN 03/27/20 [History] busPIRone [Buspar] 10 mg PO ASDIRECTED PRN 03/27/20 [History] - CURRENT (IN HOUSE) MEDS Current Meds: Current Medications Albuterol (Albuterol 0.083% 2.5 Mg/3 Ml Neb Soln) 2.5 mg NEB ONETIME PRN PRN Reason: Wheezing Droperidol (Droperidol 5 Mg/2 Ml Sdv) 0.625 mg IVPUSH ONETIME PRN PRN Reason: Nausea/Vomiting Fentanyl (Fentanyl 100 Mcg/2 Ml Sdv) 50 mcg IVPUSH Q5M PRN PRN Reason: Pain (mild 1-3) Hydromorphone HCl (Hydromorphone 1 Mg/Ml Syringe) 0.5 mg IVPUSH Q1H PRN PRN Reason: Pain Last Admin: 02/27/21 06:29 Dose: 0.5 mg Documented by: Hydromorphone HCl (Hydromorphone 2 Mg/Ml Syringe) 1 mg IVPUSH Q10M PRN PRN Reason: Pain (moderate 4-6) Sodium Chloride (Normal Saline) 1,000 mls @ 125 mls/hr IV ASDIRECTED [facility] Last Admin: 02/26/21 23:09 Dose: 125 mls/hr Documented by: Piperacillin Sod/Tazobactam (Sod 3.375 gm/ Sodium Chloride) 50 mls @ 100 mls/hr IV Q6H [facility] Last Admin: 02/27/21 05:43 Dose: 100 mls/hr Documented by: Lactated Ringer's (Ringers, Lactated) 1,000 mls @ 125 mls/hr IV ASDIRECTED [facility] Last Admin: 02/27/21 02:15 Dose: 125 mls/hr Documented by: Metoclopramide HCl (Metoclopramide 10 Mg/2 Ml Sdv) 10 mg IVPUSH ONETIME PRN PRN Reason: Nausea/Vomiting Miscellaneous Information (Remove Patch) 1 ea TRDERM Q24H [facility] Morphine Sulfate (Morphine 2 Mg/Ml Syringe) 2 mg IVPUSH Q10M PRN PRN Reason: Pain (severe 7-10) Naloxone HCl (Naloxone 0.4 Mg/Ml Syringe) 0.1 mg IVPUSH ASDIRECTED PRN PRN Reason: Respiratory Depression Ondansetron HCl (Ondansetron 4 Mg/2 Ml Sdv) 4 mg IVPUSH Q6H PRN PRN Reason: Nausea/Vomiting Ondansetron HCl (Ondansetron 4 Mg/2 Ml Sdv) 4 mg IVPUSH ONETIME PRN PRN Reason: Nausea/Vomiting Scopolamine (Scopolamine 1.5 Mg Transdermal Patch) 1.5 mg TRDERM Q72H PRN PRN Reason: Nausea/Vomiting Discontinued Medications Sodium Chloride (Normal Saline) 1,000 mls @ 999 mls/hr IV BOLUS ONE Stop: 02/26/21 21:08 Last Admin: 02/26/21 20:20 Dose: 999 mls/hr Documented by: Piperacillin Sod/Tazobactam (Sod 3.375 gm/ Sodium Chloride) 50 mls @ 100 mls/hr IV ONETIME ONE Stop: 02/26/21 23:21 Last Admin: 02/26/21 23:09 Dose: 100 mls/hr Documented by: Iopamidol (Iopamidol 755 Mg/Ml 100 Ml Bottle) 100 ml IVPUSH ONETIME ONE Stop: 02/26/21 20:50 Last Admin: 02/26/21 21:19 Dose: 100 ml Documented by: Morphine Sulfate (Morphine 4 Mg/Ml Syringe) 4 mg IVPUSH ONETIME ONE Stop: 02/26/21 20:10 Last Admin: 02/26/21 20:21 Dose: 4 mg Documented by: Ondansetron HCl (Ondansetron 4 Mg/2 Ml Sdv) 4 mg IVPUSH ONETIME ONE Stop: 02/26/21 20:09 Last Admin: 02/26/21 20:21 Dose: 4 mg Documented by:
[2021-02-27] MEDS ORDERED: Bupivacaine 0.5% 30 ML SDV ONE (07:26)
[2021-02-27] MEDS ORDERED: Octyl 2-Cyanoacrylate 1 Tube ONE (07:30)
--- NOTE | 2021-02-27 07:58 | PCM.HP.2 ---
H&P History of Present Illness - General Date of Service: 02/27/21 Admit Problem/Dx: Admission Diagnosis/Problem Admission Diagnosis/Problem Acute appendicitis Source of Information: Patient History Limitations: Reports: No Limitations - History of Present Illness Initial Comments - Free Text/Narative: Patient is a 35 year old female who presents with acute appendicitis. She developed pain in her lower abdomen associated with nausea and vomiting yesterday. She came to the hospital and while waiting had diaphoresis and chills. Pain was worse with movement. Her vitals were stable. Her WBC was elevated. CT scan of the abdomen showed a dilated and inflamed appendix consis tent with acute appendicitis. Right Upper Abdomen Pain Score (Numeric/FACES): 7 - Related Data Allergies/Adverse Reactions: Allergies Allergy/AdvReac Type Severity Reaction Status Date / Time No Known Allergies Allergy Verified 03/27/20 13:37 Home Medications: Home Meds ALPRAZolam [Xanax] 0.25 mg PO ASDIRECTED PRN 03/27/20 [History] PARoxetine [Paxil] 20 mg PO BEDTIME 03/27/20 [History] Rizatriptan Benzoate [Rizatriptan] 10 mg PO ASDIRECTED PRN 03/27/20 [History] busPIRone [Buspar] 10 mg PO ASDIRECTED PRN 03/27/20 [History] Past Medical History - Past Health History Medical/Surgical History: Denies Medical/Surgical History HEENT History: Reports: Other (See Below) Other HEENT History: wears glasses Gastrointestinal History: Reports: GI Bleed, Other (See Below) Other Gastrointestinal History: Left sided abdominal pain Genitourinary History: Reports: None 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: , 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 Neurological History: Reports: Migraines Psychiatric History: Reports: Anxiety, Depression - Past Surgical History Head Surgeries/Procedures: Reports: None GI Surgical History: Reports: None Female Surgical History: Reports: LEEP Other Female Surgeries/Procedures: ovarian cysts Neurological Surgical History: Reports: None Musculoskeletal Surgical History: Reports: Carpal Tunnel Social & Family History - Family History Family Medical History: No Pertinent Family History Cardiac: Reports: [place] Other Cardiac Family History: Father from a [place] Oncologic: Reports: Breast, Metastatic, Prostate - Tobacco Use Tobacco Use Status *Q: Former Tobacco User Years of Tobacco use: 10 Used Tobacco, but Quit: Yes Month/Year Tobacco Last Used: 04/2014 Second Hand Smoke Exposure: No - Caffeine Use Caffeine Use: Reports: Energy Drinks, Soda - Recreational Drug Use Recreational Drug Use: No Drug Use in Last 12 Months: Yes Recreational Drug Type: Reports: Marijuana/Hashish Recreational Drug Use Frequency: Weekly H&P Review of Systems - Review of Systems: Review Of Systems: Comprehensive ROS is negative, except as noted in HPI. Exam - Exam Exam: See Below - Vital Signs Vital Signs: Last Vital Signs Temp 36.2 C 02/27/21 07:36 Pulse 72 02/27/21 07:36 Resp 16 02/27/21 07:36 BP 111/74 02/27/21 07:36 Pulse Ox 97 02/27/21 07:36 Weight: 77.746 kg - Exam General: Alert, Oriented HEENT: Conjunctiva Clear, Mucosa Moist & [place], Posterior Pharynx Clear Neck: Supple, Trachea Midline Lungs: Clear to Auscultation, Normal Respiratory Effort Cardiovascular: Regular Rate, Regular Rhythm GI/Abdominal Exam: Soft, No Distention, No Mass, Tender (RLQ). No: Guarding, Rigid, Rebound Back Exam: Normal Inspection, Full Range of Motion Extremities: Normal Inspection, Normal Range of Motion - Patient Data Lab Results Last 24 hrs: Laboratory Results - last 24 hr 02/26/21 02/26/21 02/26/21 Range/Units 20:00 20:10 20:10 WBC 17.88 H (4.0-11.0) K/uL RBC 4.59 (4.30-5.90) M/uL Hgb 13.8 (12.0-16.0) g/dL Hct 39.8 (36.0-46.0) % MCV 86.7 (80.0-98.0) fL MCH 30.1 (27.0-32.0) pg MCHC 34.7 (31.0-37.0) g/dL RDW Std Deviation 41.4 (28.0-62.0) fl RDW Coeff of Javier 13 (11.0-15.0) % Plt Count 317 (150-400) K/uL MPV 9.00 (7.40-12.00) fL Neut % (Auto) 79.8 (48.0-80.0) % Lymph % (Auto) 15.5 L (16.0-40.0) % [place] % (Auto) 4.3 (0.0-15.0) % Eos % (Auto) 0.2 (0.0-7.0) % Baso % (Auto) 0.2 (0.0-1.5) % Neut # (Auto) 14.3 H (1.4-5.7) K/uL Lymph # (Auto) 2.8 H (0.6-2.4) K/uL [place] # (Auto) 0.8 (0.0-0.8) K/uL Eos # (Auto) 0.0 (0.0-0.7) K/uL Baso # (Auto) 0.0 (0.0-0.1) K/uL Nucleated RBC % 0.0 /100WBC Nucleated RBCs # 0 K/uL Sodium 138 (136-145) mmol/L Potassium 4.0 (3.5-5.1) mmol/L Chloride 103 (98-107) mmol/L Carbon Dioxide 27.1 (21.0-32.0) mmol/L BUN 12 (7.0-18.0) mg/dL Creatinine 1.0 (0.6-1.0) mg/dL Est Cr Clr Drug Dosing 62.10 mL/min Estimated GFR (MDRD) > 60.0 ml/min Glucose 111 H (74-106) mg/dL Lactic Acid (0.4-2.0) mmol/L Calcium 9.3 (8.5-10.1) mg/dL Total Bilirubin 0.5 (0.2-1.0) mg/dL AST 16 (15-37) IU/L ALT 27 (14-63) IU/L Alkaline Phosphatase 86 (46-116) U/L Total Protein 7.8 (6.4-8.2) g/dL Albumin 4.3 (3.4-5.0) g/dL Globulin 3.5 (2.6-4.0) g/dL Albumin/Globulin Ratio 1.2 (0.9-1.6) Lipase 60 L (73-393) U/L HCG, Qual (NEG) Urine Color YELLOW Urine Appearance CLEAR Urine pH 7.0 (5.0-8.0) Ur Specific [place] 1.025 (1.001-1.035) Urine Protein NEGATIVE (NEGATIVE) mg/dL Urine Glucose (UA) NEGATIVE (NEGATIVE) mg/dL Urine Ketones NEGATIVE (NEGATIVE) mg/dL Urine Occult Blood NEGATIVE (NEGATIVE) Urine Nitrite NEGATIVE (NEGATIVE) Urine Bilirubin NEGATIVE (NEGATIVE) Urine Urobilinogen 0.2 (<2.0) EU/dL Ur Leukocyte Esterase NEGATIVE (NEGATIVE) SARS-CoV-2 RNA ([facility]) (NEGATIVE) 02/26/21 02/26/21 02/26/21 Range/Units 20:10 21:00 22:55 WBC (4.0-11.0) K/uL RBC (4.30-5.90) M/uL Hgb (12.0-16.0) g/dL Hct (36.0-46.0) % MCV (80.0-98.0) fL MCH (27.0-32.0) pg MCHC (31.0-37.0) g/dL RDW Std Deviation (28.0-62.0) fl RDW Coeff of Javier (11.0-15.0) % Plt Count (150-400) K/uL MPV (7.40-12.00) fL Neut % (Auto) (48.0-80.0) % Lymph % (Auto) (16.0-40.0) % [place] % (Auto) (0.0-15.0) % Eos % (Auto) (0.0-7.0) % Baso % (Auto) (0.0-1.5) % Neut # (Auto) (1.4-5.7) K/uL Lymph # (Auto) (0.6-2.4) K/uL [place] # (Auto) (0.0-0.8) K/uL Eos # (Auto) (0.0-0.7) K/uL Baso # (Auto) (0.0-0.1) K/uL Nucleated RBC % /100WBC Nucleated RBCs # K/uL Sodium (136-145) mmol/L Potassium (3.5-5.1) mmol/L Chloride (98-107) mmol/L Carbon Dioxide (21.0-32.0) mmol/L BUN (7.0-18.0) mg/dL Creatinine (0.6-1.0) mg/dL Est Cr Clr Drug Dosing mL/min Estimated GFR (MDRD) ml/min Glucose (74-106) mg/dL Lactic Acid 0.9 (0.4-2.0) mmol/L Calcium (8.5-10.1) mg/dL Total Bilirubin (0.2-1.0) mg/dL AST (15-37) IU/L ALT (14-63) IU/L Alkaline Phosphatase (46-116) U/L Total Protein (6.4-8.2) g/dL Albumin (3.4-5.0) g/dL Globulin (2.6-4.0) g/dL Albumin/Globulin Ratio (0.9-1.6) Lipase (73-393) U/L HCG, Qual NEGATIVE (NEG) Urine Color Urine Appearance Urine pH (5.0-8.0) Ur Specific [place] (1.001-1.035) Urine Protein (NEGATIVE) mg/dL Urine Glucose (UA) (NEGATIVE) mg/dL Urine Ketones (NEGATIVE) mg/dL Urine Occult Blood (NEGATIVE) Urine Nitrite (NEGATIVE) Urine Bilirubin (NEGATIVE) Urine Urobilinogen (<2.0) EU/dL Ur Leukocyte Esterase (NEGATIVE) SARS-CoV-2 RNA (PEACE) NEGATIVE (NEGATIVE) Result Diagrams: 02/26/21 20:10 02/26/21 20:10 Sepsis Event Note - Evaluation Sepsis Screening Result: No Definite Risk - Focused Exam Vital Signs: Vital Signs Temp Pulse Resp BP Pulse Ox 02/27/21 07:36 36.2 C 72 16 111/74 97 02/27/21 06:15 36.3 C 70 20 101/67 98 02/27/21 00:52 36.6 C 68 20 124/79 98 02/26/21 23:00 36.5 C 84 18 126/77 97 - Problem List (1) Acute appendicitis SNOMED Code(s): 05226272 ICD Code: K35.80 - UNSPECIFIED ACUTE APPENDICITIS Status: Acute Current Visit: Yes Qualifiers: Acute appendicitis type: unspecified acute appendicitis type Qualified Code(s): K35.80 - Unspecified acute appendicitis Problem List Initiated/Reviewed/Updated: Yes Orders Last 24hrs: Active Orders 24 hr Category Date Time Status Admission Status [Patient Status] [ADT] Stat ADT 02/26/21 22:56 Active Antiembolic Devices [RC] PER UNIT ROUTINE Care 02/27/21 00:50 Hold Blood Glucose Check, Bedside [RC] PRN Care 02/27/21 07:06 Active Incentive Spirometry [RT Incentive Spirometry] [RC] Care 02/27/21 00:50 Hold ASDIRECTED Notify Provider Consults [RC] ASDIRECTED Care 02/26/21 22:53 Active Notify Provider Vital Signs [RC] ASDIRECTED Care 02/27/21 07:06 Active Nurse Communication: Isolation [RC] ASDIRECTED Care 02/27/21 01:24 Active Overnight Pulse Oximetry [RC] Click to Edit Care 02/27/21 07:06 Active Oxygen Therapy [RC] PRN Care 02/27/21 07:06 Active RT Aerosol Therapy [RC] ASDIRECTED Care 02/27/21 07:06 Active RT BiPAP/CPAP [RC] ASDIRECTED Care 02/27/21 07:06 Active Vital Signs [RC] Q5M Care 02/27/21 07:06 Active Consult to Physician [CONS] Stat Cons 02/26/21 22:52 Active NPO Now [Nothing per Oral Now Diet] [DIET] Diet 02/27/21 Breakfast Active CULTURE BLOOD [BC] Stat Lab 02/26/21 21:00 Received CULTURE BLOOD [BC] Stat Lab 02/26/21 21:40 Received Albuterol [Proventil Neb Soln] Med 02/27/21 07:05 Active 2.5 mg NEB ONETIME PRN HYDROmorphone [Dilaudid] Med 02/27/21 00:54 Active 0.5 mg IVPUSH Q1H PRN HYDROmorphone [Dilaudid] Med 02/27/21 07:05 Active 1 mg IVPUSH Q10M PRN Lactated Ringers [Ringers, Lactated] 1,000 ml Med 02/27/21 01:00 Active IV ASDIRECTED Metoclopramide [Reglan] Med 02/27/21 07:05 Active 10 mg IVPUSH ONETIME PRN Morphine Med 02/27/21 07:05 Active 2 mg IVPUSH Q10M PRN Naloxone [Narcan] Med 02/27/21 07:05 Active 0.1 mg IVPUSH ASDIRECTED PRN Ondansetron [Zofran] Med 02/27/21 07:05 Active 4 mg IVPUSH ONETIME PRN Ondansetron [Zofran] Med 02/27/21 00:51 Active 4 mg IVPUSH Q6H PRN Piperacillin/Tazobactam [Piperacil-Tazobact] 3.375 gm Med 02/27/21 05:00 Active Sodium Chloride 0.9% [Normal Saline] 50 ml IV Q6H Remove Patch Med 03/01/21 09:00 Active 1 ea TRDERM Q24H Scopolamine [Transderm-Scop] Med 02/27/21 00:51 Active 1.5 mg TRDERM Q72H PRN Sodium Chloride 0.9% [Normal Saline] 1,000 ml Med 02/26/21 23:15 Active IV ASDIRECTED droperidoL [Inapsine] Med 02/27/21 07:05 Active 0.625 mg IVPUSH ONETIME PRN fentaNYL [Sublimaze] Med 02/27/21 07:05 Active 50 mcg IVPUSH Q5M PRN Blood Culture x2 Reflex Set [OM.PC] Stat Oth 02/26/21 20:50 Ordered Isolation [COMM] Routine Oth 02/27/21 01:24 Active Pulse Oximetry Continuous Monitoring [OM.PC] Routine Oth 02/27/21 07:06 Ordered SCD [Sequential Compression Device] [OM.PC] Routine Oth 02/27/21 00:50 Ordered Medication Orders Albuterol (Albuterol 0.083% 2.5 Mg/3 Ml Neb Soln) 2.5 mg NEB ONETIME PRN PRN Reason: Wheezing Droperidol (Droperidol 5 Mg/2 Ml Sdv) 0.625 mg IVPUSH ONETIME PRN PRN Reason: Nausea/Vomiting Fentanyl (Fentanyl 100 Mcg/2 Ml Sdv) 50 mcg IVPUSH Q5M PRN PRN Reason: Pain (mild 1-3) Hydromorphone HCl (Hydromorphone 1 Mg/Ml Syringe) 0.5 mg IVPUSH Q1H PRN PRN Reason: Pain Last Admin: 02/27/21 06:29 Dose: 0.5 mg Documented by: Admin: 02/27/21 02:01 Dose: 0.5 mg Documented by: TIEN Hydromorphone HCl (Hydromorphone 2 Mg/Ml Syringe) 1 mg IVPUSH Q10M PRN PRN Reason: Pain (moderate 4-6) Sodium Chloride (Normal Saline) 1,000 mls @ 125 mls/hr IV ASDIRECTED [facility] Last Admin: 02/26/21 23:09 Dose: 125 mls/hr Documented by: SELAM Piperacillin Sod/Tazobactam (Sod 3.375 gm/ Sodium Chloride) 50 mls @ 100 mls/hr IV Q6H [facility] Last Admin: 02/27/21 05:43 Dose: 100 mls/hr Documented by: TIEN Lactated Ringer's (Ringers, Lactated) 1,000 mls @ 125 mls/hr IV ASDIRECTED [facility] Last Admin: 02/27/21 02:15 Dose: 125 mls/hr Documented by: TIEN Metoclopramide HCl (Metoclopramide 10 Mg/2 Ml Sdv) 10 mg IVPUSH ONETIME PRN PRN Reason: Nausea/Vomiting Miscellaneous Information (Remove Patch) 1 ea TRDERM Q24H [facility] Morphine Sulfate (Morphine 2 Mg/Ml Syringe) 2 mg IVPUSH Q10M PRN PRN Reason: Pain (severe 7-10) Naloxone HCl (Naloxone 0.4 Mg/Ml Syringe) 0.1 mg IVPUSH ASDIRECTED PRN PRN Reason: Respiratory Depression Ondansetron HCl (Ondansetron 4 Mg/2 Ml Sdv) 4 mg IVPUSH Q6H PRN PRN Reason: Nausea/Vomiting Ondansetron HCl (Ondansetron 4 Mg/2 Ml Sdv) 4 mg IVPUSH ONETIME PRN PRN Reason: Nausea/Vomiting Scopolamine (Scopolamine 1.5 Mg Transdermal Patch) 1.5 mg TRDERM Q72H PRN PRN Reason: Nausea/Vomiting Assessment/Plan Comment:: The patient and I discussed the pathophysiology of appendicitis. The treatment is appendectomy. I will attempt this laparoscopically but convert to open should I be unable to perform it safely. We discussed the hospital course for perforated vs non-perforated appendicitis. We discussed the risks including bleeding infection or damage to surrounding structures. She verbalized understanding and wishes to proceed.
[2021-02-27] MEDS ORDERED: Ketorolac 30 MG/ML SDV ONE (08:46)
[2021-02-27] MEDS ORDERED: Acetaminophen/oxyCODONE 325-5 MG Tab PO PRN (09:06)
--- NOTE | 2021-02-27 09:06 | PCM.OPNOTE ---
- General Post-Op/Procedure Note Date of Surgery/Procedure: 02/27/21 Operative Procedure(s): Laparoscopic appendectomy Findings: Inflamed and enlarged appendix, but no evidence of perforation Pre Op Diagnosis: Acute appendicitis Post-Op Diagnosis: same Anesthesia Technique: General ET Tube Primary Surgeon: Mary Vigil Fluid Replacement, Intraop: 700 Output, Urine Amount: 50 EBL in mLs: 5 Condition: Stable Free Text/Narrative:: Intake & Output 02/26/21 02/27/21 02/27/21 22:59 06:59 14:59 Intake Total 925 Balance 925
--- NOTE | 2021-02-27 09:17 | PCM.POSTAN ---
POST ANESTHESIA ASSESSMENT - MENTAL STATUS Mental Status: Alert, Oriented - VITAL SIGNS Vital Signs: Last Vital Signs Temp 97.2 F 02/27/21 07:36 Pulse 72 02/27/21 07:36 Resp 16 02/27/21 07:36 BP 111/74 02/27/21 07:36 Pulse Ox 97 02/27/21 07:36 - RESPIRATORY Respiratory Status: Respiratory Rate WNL, Airway Patent, O2 Saturation Stable - CARDIOVASCULAR CV Status: Pulse Rate WNL, Blood Pressure Stable - GASTROINTESTINAL GI Status: No Symptoms - POST OP HYDRATION Hydration Status: Adequate & Stable
--- NOTE | 2021-02-27 09:17 | PCM48HPAN ---
Post Anesthesia Note - EVALUATION WITHIN 48HRS OF ANESTHETIC Vital Signs in Normal Range: Yes Patient Participated in Evaluation: Yes Respiratory Function Stable: Yes Airway Patent: Yes Cardiovascular Function Stable: Yes Hydration Status Stable: Yes Pain Control Satisfactory: Yes Nausea and Vomiting Control Satisfactory: Yes Mental Status Recovered: Yes Vital Signs: Last Vital Signs Temp 97.2 F 02/27/21 07:36 Pulse 72 02/27/21 07:36 Resp 16 02/27/21 07:36 BP 111/74 02/27/21 07:36 Pulse Ox 97 02/27/21 07:36
--- NOTE | 2021-02-27 13:45 | OR ---
SURGEON: MARY VIGIL MD DATE OF PROCEDURE: 02/27/2021 PREOPERATIVE DIAGNOSIS: Acute appendicitis. POSTOPERATIVE DIAGNOSIS: Acute appendicitis. PROCEDURE PERFORMED: Laparoscopic appendectomy. PRIMARY SURGEON: Mary Vigil MD ANESTHESIA: General endotracheal anesthesia. FLUIDS: 700 mL crystalloid. ESTIMATED BLOOD LOSS: 5 mL. URINE OUTPUT: 50 mL. FINDINGS: Inflamed and enlarged appendix with no evidence of perforation. COMPLICATIONS: None. INDICATIONS: The patient is a 35-year-old female who presented with a one-day history of abdominal pain. Workup revealed acute appendicitis. I explained the need for an appendectomy. I would attempt it laparoscopically but convert to open should I be unable to perform it safely. I explained the procedures, expected perioperative course, and the risks. She verbalized understanding and wishes to proceed. PROCEDURE IN DETAIL: The patient was brought in to the OR suite, placed on the OR table in supine position. A time-out was completed verifying the patient's name, age, date of , allergies, and procedure to be performed. General endotracheal anesthesia was induced. The left arm was tucked to the patient's side and a Castro catheter placed. The abdomen was prepped and draped in usual standard fashion. I anesthetized an area two fingerbreadths below the left subcostal margin in the midclavicular line with 0.5% Marcaine plain. An 11-blade was used to make an incision in this area. A 5 mm optical trocar was used to gain entry into the abdomen in the left upper quadrant. All layers of the abdominal wall were visualized upon entry. The abdomen was insufflated. A 5 mm 30-degree scope was inserted in the abdomen. I inspected the area underneath my initial trocar placement and no damage to surrounding structures was noted. A 5 mm trocar was placed just left and lateral to the umbilicus. A 12 mm trocar was placed under direct visualization in the left lower quadrant. The patient was placed into Trendelenburg position and airplaned slightly to the left. I turned my attention to the right lower quadrant. An inflamed and enlarged appearing appendix was noted at the base of the cecum. This was grasped with an atraumatic grasper and elevated anteriorly. I could clearly see the base of the appendix. Using a [place] device, I created a window between the appendix and the appendiceal mesentery right at the base. An endoscopic stapling device was brought into the field. I stapled and transected across the base of the appendix using a 45 mm blue load of roshan. The appendiceal mesentery was then taken down using a Harmonic scalpel device. The appendix was then placed in an EndoCatch bag and removed through the 12 mm port site. I inspected my operative field. It was hemostatic and the staple line was intact. I used a small amount of irrigation to irrigate my field. There was no evidence of bleeding. The 12 mm trocar was removed and I closed the fascia at this site with interrupted 0 Vicryl suture using a Jone-Savita device. The 5 mm trocars were then removed under direct visualization, and the abdomen allowed to desufflate. The 12 mm trocar site was closed with interrupted layers of 3-0 Vicryl suture within the subcutaneous fat layer. The skin was closed with a running 4-0 Monocryl stitch. The 5 mm trocar sites were closed with interrupted 4-0 Monocryl suture. Steri-Strips and sterile dressings were applied. All counts were complete and correct at the end of the case. The patient was extubated, and taken to PACU in stable condition. JUANCARLOS HARLEY /[id number]
[2021-02-27 15:04] VITALS: BP 116/72; PULSE 63
--- NOTE | 2021-02-27 15:17 | PCM.SURGPN ---
- General Info Date of Service: 02/27/21 Date of Surgery/Procedure: 02/27/21 POD#: 0 Functional Status: Reports: Pain Controlled, Tolerating Diet, Ambulating, Urinating. Denies: New Symptoms - Review of Systems General: Reports: No Symptoms HEENT: Reports: No Symptoms Pulmonary: Reports: No Symptoms Cardiovascular: Reports: No Symptoms Gastrointestinal: Reports: No Symptoms Genitourinary: Reports: No Symptoms Musculoskeletal: Reports: No Symptoms Skin: Reports: No Symptoms - Patient Data Vitals - Most Recent: Last Vital Signs Temp 36.1 C 02/27/21 14:00 Pulse 63 02/27/21 14:00 Resp 16 02/27/21 14:00 BP 116/72 02/27/21 14:00 Pulse Ox 99 02/27/21 14:00 Weight - Most Recent: 77.746 kg I&O - Last 24 Hours: Intake & Output 02/27/21 02/27/21 02/27/21 06:59 14:59 22:59 Intake Total 925 1500 Output Total 150 Balance 925 1350 Lab Results Last 24 Hrs: Laboratory Results - last 24 hr 02/26/21 02/26/21 02/26/21 Range/Units 20:00 20:10 20:10 WBC 17.88 H (4.0-11.0) K/uL RBC 4.59 (4.30-5.90) M/uL Hgb 13.8 (12.0-16.0) g/dL Hct 39.8 (36.0-46.0) % MCV 86.7 (80.0-98.0) fL MCH 30.1 (27.0-32.0) pg MCHC 34.7 (31.0-37.0) g/dL RDW Std Deviation 41.4 (28.0-62.0) fl RDW Coeff of Javier 13 (11.0-15.0) % Plt Count 317 (150-400) K/uL MPV 9.00 (7.40-12.00) fL Neut % (Auto) 79.8 (48.0-80.0) % Lymph % (Auto) 15.5 L (16.0-40.0) % [place] % (Auto) 4.3 (0.0-15.0) % Eos % (Auto) 0.2 (0.0-7.0) % Baso % (Auto) 0.2 (0.0-1.5) % Neut # (Auto) 14.3 H (1.4-5.7) K/uL Lymph # (Auto) 2.8 H (0.6-2.4) K/uL [place] # (Auto) 0.8 (0.0-0.8) K/uL Eos # (Auto) 0.0 (0.0-0.7) K/uL Baso # (Auto) 0.0 (0.0-0.1) K/uL Nucleated RBC % 0.0 /100WBC Nucleated RBCs # 0 K/uL Sodium 138 (136-145) mmol/L Potassium 4.0 (3.5-5.1) mmol/L Chloride 103 (98-107) mmol/L Carbon Dioxide 27.1 (21.0-32.0) mmol/L BUN 12 (7.0-18.0) mg/dL Creatinine 1.0 (0.6-1.0) mg/dL Est Cr Clr Drug Dosing 62.10 mL/min Estimated GFR (MDRD) > 60.0 ml/min Glucose 111 H (74-106) mg/dL Lactic Acid (0.4-2.0) mmol/L Calcium 9.3 (8.5-10.1) mg/dL Total Bilirubin 0.5 (0.2-1.0) mg/dL AST 16 (15-37) IU/L ALT 27 (14-63) IU/L Alkaline Phosphatase 86 (46-116) U/L Total Protein 7.8 (6.4-8.2) g/dL Albumin 4.3 (3.4-5.0) g/dL Globulin 3.5 (2.6-4.0) g/dL Albumin/Globulin Ratio 1.2 (0.9-1.6) Lipase 60 L (73-393) U/L HCG, Qual (NEG) Urine Color YELLOW Urine Appearance CLEAR Urine pH 7.0 (5.0-8.0) Ur Specific Glady 1.025 (1.001-1.035) Urine Protein NEGATIVE (NEGATIVE) mg/dL Urine Glucose (UA) NEGATIVE (NEGATIVE) mg/dL Urine Ketones NEGATIVE (NEGATIVE) mg/dL Urine Occult Blood NEGATIVE (NEGATIVE) Urine Nitrite NEGATIVE (NEGATIVE) Urine Bilirubin NEGATIVE (NEGATIVE) Urine Urobilinogen 0.2 (<2.0) EU/dL Ur Leukocyte Esterase NEGATIVE (NEGATIVE) SARS-CoV-2 RNA (PEACE) (NEGATIVE) 02/26/21 02/26/21 02/26/21 Range/Units 20:10 21:00 22:55 WBC (4.0-11.0) K/uL RBC (4.30-5.90) M/uL Hgb (12.0-16.0) g/dL Hct (36.0-46.0) % MCV (80.0-98.0) fL MCH (27.0-32.0) pg MCHC (31.0-37.0) g/dL RDW Std Deviation (28.0-62.0) fl RDW Coeff of Javier (11.0-15.0) % Plt Count (150-400) K/uL MPV (7.40-12.00) fL Neut % (Auto) (48.0-80.0) % Lymph % (Auto) (16.0-40.0) % [place] % (Auto) (0.0-15.0) % Eos % (Auto) (0.0-7.0) % Baso % (Auto) (0.0-1.5) % Neut # (Auto) (1.4-5.7) K/uL Lymph # (Auto) (0.6-2.4) K/uL [place] # (Auto) (0.0-0.8) K/uL Eos # (Auto) (0.0-0.7) K/uL Baso # (Auto) (0.0-0.1) K/uL Nucleated RBC % /100WBC Nucleated RBCs # K/uL Sodium (136-145) mmol/L Potassium (3.5-5.1) mmol/L Chloride (98-107) mmol/L Carbon Dioxide (21.0-32.0) mmol/L BUN (7.0-18.0) mg/dL Creatinine (0.6-1.0) mg/dL Est Cr Clr Drug Dosing mL/min Estimated GFR (MDRD) ml/min Glucose (74-106) mg/dL Lactic Acid 0.9 (0.4-2.0) mmol/L Calcium (8.5-10.1) mg/dL Total Bilirubin (0.2-1.0) mg/dL AST (15-37) IU/L ALT (14-63) IU/L Alkaline Phosphatase (46-116) U/L Total Protein (6.4-8.2) g/dL Albumin (3.4-5.0) g/dL Globulin (2.6-4.0) g/dL Albumin/Globulin Ratio (0.9-1.6) Lipase (73-393) U/L HCG, Qual NEGATIVE (NEG) Urine Color Urine Appearance Urine pH (5.0-8.0) Ur Specific Glady (1.001-1.035) Urine Protein (NEGATIVE) mg/dL Urine Glucose (UA) (NEGATIVE) mg/dL Urine Ketones (NEGATIVE) mg/dL Urine Occult Blood (NEGATIVE) Urine Nitrite (NEGATIVE) Urine Bilirubin (NEGATIVE) Urine Urobilinogen (<2.0) EU/dL Ur Leukocyte Esterase (NEGATIVE) SARS-CoV-2 RNA (PEACE) NEGATIVE (NEGATIVE) Med Orders - Current: Current Medications Hydromorphone HCl (Hydromorphone 1 Mg/Ml Syringe) 0.5 mg IVPUSH Q1H PRN PRN Reason: Pain Last Admin: 02/27/21 06:29 Dose: 0.5 mg Documented by: Sodium Chloride (Normal Saline) 1,000 mls @ 125 mls/hr IV ASDIRECTED [facility] Last Admin: 02/26/21 23:09 Dose: 125 mls/hr Documented by: Miscellaneous Information (Remove Patch) 1 ea TRDERM Q24H [facility] Ondansetron HCl (Ondansetron 4 Mg/2 Ml Sdv) 4 mg IVPUSH Q6H PRN PRN Reason: Nausea/Vomiting Oxycodone/Acetaminophen (Acetaminophen/Oxycodone 325-5 Mg Tab) 2 tab PO Q4H PRN PRN Reason: Pain (moderate 4-6) Last Admin: 02/27/21 11:10 Dose: 2 tab Documented by: Scopolamine (Scopolamine 1.5 Mg Transdermal Patch) 1.5 mg TRDERM Q72H PRN PRN Reason: Nausea/Vomiting Discontinued Medications Albuterol (Albuterol 0.083% 2.5 Mg/3 Ml Neb Soln) 2.5 mg NEB ONETIME PRN PRN Reason: Wheezing Bupivacaine HCl (Bupivacaine 0.5% 30 Ml Sdv) Confirm Administered Dose 30 ml .ROUTE .STK-MED ONE Stop: 02/27/21 07:27 Dexamethasone (Dexamethasone 4 Mg/Ml 5 Ml Mdv) Confirm Administered Dose 20 mg .ROUTE .STK-MED ONE Stop: 02/27/21 07:20 Droperidol (Droperidol 5 Mg/2 Ml Sdv) 0.625 mg IVPUSH ONETIME PRN PRN Reason: Nausea/Vomiting Fentanyl (Fentanyl 100 Mcg/2 Ml Sdv) 50 mcg IVPUSH Q5M PRN PRN Reason: Pain (mild 1-3) Fentanyl (Fentanyl 100 Mcg/2 Ml Sdv) Confirm Administered Dose 100 mcg .ROUTE .STK-MED ONE Stop: 02/27/21 07:21 Hydromorphone HCl (Hydromorphone 2 Mg/Ml Syringe) 1 mg IVPUSH Q10M PRN PRN Reason: Pain (moderate 4-6) Sodium Chloride (Normal Saline) 1,000 mls @ 999 mls/hr IV BOLUS ONE Stop: 02/26/21 21:08 Last Admin: 02/26/21 20:20 Dose: 999 mls/hr Documented by: Piperacillin Sod/Tazobactam (Sod 3.375 gm/ Sodium Chloride) 50 mls @ 100 mls/hr IV ONETIME ONE Stop: 02/26/21 23:21 Last Admin: 02/26/21 23:09 Dose: 100 mls/hr Documented by: Piperacillin Sod/Tazobactam (Sod 3.375 gm/ Sodium Chloride) 50 mls @ 100 mls/hr IV Q6H [facility] Last Admin: 02/27/21 05:43 Dose: 100 mls/hr Documented by: Lactated Ringer's (Ringers, Lactated) 1,000 mls @ 125 mls/hr IV ASDIRECTED [facility] Last Admin: 02/27/21 02:15 Dose: 125 mls/hr Documented by: Acetaminophen (Ofirmev 1000 Mg/100 Ml) Confirm Administered Dose 100 mls @ as directed .ROUTE .STK-MED ONE Stop: 02/27/21 08:46 Iopamidol (Iopamidol 755 Mg/Ml 100 Ml Bottle) 100 ml IVPUSH ONETIME ONE Stop: 02/26/21 20:50 Last Admin: 02/26/21 21:19 Dose: 100 ml Documented by: Ketorolac Tromethamine (Ketorolac 30 Mg/Ml Sdv) Confirm Administered Dose 30 mg .ROUTE .STK-MED ONE Stop: 02/27/21 08:47 Lidocaine (Lidocaine 2% 5 Ml Sdv) Confirm Administered Dose 5 ml .ROUTE .STK-MED ONE Stop: 02/27/21 07:20 Metoclopramide HCl (Metoclopramide 10 Mg/2 Ml Sdv) 10 mg IVPUSH ONETIME PRN PRN Reason: Nausea/Vomiting Midazolam HCl (Midazolam 1 Mg/Ml 2 Ml Sdv) Confirm Administered Dose 2 mg .ROUTE .STK-MED ONE Stop: 02/27/21 07:21 Morphine Sulfate (Morphine 4 Mg/Ml Syringe) 4 mg IVPUSH ONETIME ONE Stop: 02/26/21 20:10 Last Admin: 02/26/21 20:21 Dose: 4 mg Documented by: Morphine Sulfate (Morphine 2 Mg/Ml Syringe) 2 mg IVPUSH Q10M PRN PRN Reason: Pain (severe 7-10) Naloxone HCl (Naloxone 0.4 Mg/Ml Syringe) 0.1 mg IVPUSH ASDIRECTED PRN PRN Reason: Respiratory Depression Octyl Cyanoacrylate (Octyl 2-Cyanoacrylate 1 Tube) Confirm Administered Dose 0 applic .ROUTE .STK-MED ONE Stop: 02/27/21 07:31 Ondansetron HCl (Ondansetron 4 Mg/2 Ml Sdv) 4 mg IVPUSH ONETIME ONE Stop: 02/26/21 20:09 Last Admin: 02/26/21 20:21 Dose: 4 mg Documented by: Ondansetron HCl (Ondansetron 4 Mg/2 Ml Sdv) 4 mg IVPUSH ONETIME PRN PRN Reason: Nausea/Vomiting Ondansetron HCl (Ondansetron 4 Mg/2 Ml Sdv) Confirm Administered Dose 4 mg .ROUTE .STK-MED ONE Stop: 02/27/21 07:20 Propofol (Propofol 200 Mg/20 Ml Sdv) Confirm Administered Dose 200 mg .ROUTE .STK-MED ONE Stop: 02/27/21 07:21 Rocuronium Lyons (Rocuronium Lyons 50 Mg/5 Ml Syringe) Confirm Administered Dose 50 mg .ROUTE .STK-MED ONE Stop: 02/27/21 07:20 Sugammadex Sodium (Sugammadex Sodium 200 Mg/2 Ml Vial) Confirm Administered Dose 200 mg .ROUTE .STK-MED ONE Stop: 02/27/21 07:20 - Exam Wound/Incisions: Healing Well, Dressing Dry and Intact General: Alert, Oriented HEENT: Pupils Equal, Pupils Reactive Lungs: Normal Respiratory Effort Cardiovascular: Regular Rate GI/Abdominal Exam: Soft, Non-Tender, No Distention, No Mass Skin: Warm, Dry, Intact Sepsis Event Note - Evaluation Sepsis Screening Result: No Definite Risk - Focused Exam Vital Signs: Vital Signs Temp Pulse Resp BP Pulse Ox 02/27/21 14:00 36.1 C 63 16 116/72 99 02/27/21 12:00 36.3 C 82 18 105/56 L 95 02/27/21 11:11 78 16 102/65 97 02/27/21 10:30 69 16 101/64 95 02/27/21 10:15 60 16 100/60 95 02/27/21 10:00 67 16 100/60 96 02/27/21 09:45 36 C L 77 16 109/64 93 L 02/27/21 09:29 88 16 116/73 98 02/27/21 09:24 92 18 128/71 96 02/27/21 09:19 91 20 120/76 97 02/27/21 09:14 74 17 124/76 98 02/27/21 09:09 36.5 C 86 22 H 148/60 H 97 02/27/21 07:36 36.2 C 72 16 111/74 97 02/27/21 06:15 36.3 C 70 20 101/67 98 - Problem List & Annotations (1) Acute appendicitis SNOMED Code(s): 67356682 Code(s): K35.80 - UNSPECIFIED ACUTE APPENDICITIS Status: Acute Current Visit: Yes Qualifiers: Acute appendicitis type: with localized peritonitis Appendicitis gangrene presence: without gangrene Appendicitis perforation presence: without perforation Appendicitis abscess presence: without abscess Qualified Code(s): K35.30 - Acute appendicitis with localized peritonitis, without perforation or gangrene - Problem List Review Problem List Initiated/Reviewed/Updated: Yes - My Orders Last 24 Hours: Active Orders 24 hr Category Date Time Status Patient Status [ADT] Routine ADT 02/27/21 09:06 Active Antiembolic Devices [RC] PER UNIT ROUTINE Care 02/27/21 00:50 Active Incentive Spirometry [RT Incentive Spirometry] [RC] Care 02/27/21 00:50 Hold ASDIRECTED Notify Provider Consults [RC] ASDIRECTED Care 02/26/21 22:53 Active Notify Provider Vital Signs [RC] ASDIRECTED Care 02/27/21 07:06 Active Nurse Communication: Isolation [RC] ASDIRECTED Care 02/27/21 01:24 Active Overnight Pulse Oximetry [RC] Click to Edit Care 02/27/21 07:06 Active Oxygen Therapy [RC] PRN Care 02/27/21 07:06 Active Oxygen Therapy [RC] PRN Care 02/27/21 09:06 Active Ready for Discharge [RC] PER UNIT ROUTINE Care 02/27/21 15:14 Ordered Up ad Rekha [RC] ASDIRECTED Care 02/27/21 09:06 Active Vital Signs [RC] PER UNIT ROUTINE Care 02/27/21 09:06 Active Consult to Physician [CONS] Stat Cons 02/26/21 22:52 Active Regular Diet [DIET] Diet 02/27/21 Lunch Active CULTURE BLOOD [BC] Stat Lab 02/26/21 21:00 Received CULTURE BLOOD [BC] Stat Lab 02/26/21 21:40 Received Acetaminophen/oxyCODONE [Percocet 325-5 MG] Med 02/27/21 09:06 Active 2 tab PO Q4H PRN HYDROmorphone [Dilaudid] Med 02/27/21 00:54 Active 0.5 mg IVPUSH Q1H PRN Ondansetron [Zofran] Med 02/27/21 00:51 Active 4 mg IVPUSH Q6H PRN Remove Patch Med 03/01/21 09:00 Active 1 ea TRDERM Q24H Scopolamine [Transderm-Scop] Med 02/27/21 00:51 Active 1.5 mg TRDERM Q72H PRN Sodium Chloride 0.9% [Normal Saline] 1,000 ml Med 02/26/21 23:15 Active IV ASDIRECTED Blood Culture x2 Reflex Set [OM.PC] Stat Oth 02/26/21 20:50 Ordered Isolation [COMM] Routine Oth 02/27/21 01:24 Active Pulse Oximetry Continuous Monitoring [OM.PC] Routine Oth 02/27/21 07:06 Ordered SCD [Sequential Compression Device] [OM.PC] Routine Oth 02/27/21 00:50 Ordered Resuscitation Status Routine Resus Stat 02/27/21 09:06 Ordered Medication Orders Hydromorphone HCl (Hydromorphone 1 Mg/Ml Syringe) 0.5 mg IVPUSH Q1H PRN PRN Reason: Pain Last Admin: 02/27/21 06:29 Dose: 0.5 mg Documented by: Admin: 02/27/21 02:01 Dose: 0.5 mg Documented by: TIEN Sodium Chloride (Normal Saline) 1,000 mls @ 125 mls/hr IV ASDIRECTED [facility] Last Admin: 02/26/21 23:09 Dose: 125 mls/hr Documented by: SELAM Miscellaneous Information (Remove Patch) 1 ea TRDERM Q24H [facility] Ondansetron HCl (Ondansetron 4 Mg/2 Ml Sdv) 4 mg IVPUSH Q6H PRN PRN Reason: Nausea/Vomiting Oxycodone/Acetaminophen (Acetaminophen/Oxycodone 325-5 Mg Tab) 2 tab PO Q4H PRN PRN Reason: Pain (moderate 4-6) Last Admin: 02/27/21 11:10 Dose: 2 tab Documented by: JOAQUINA Scopolamine (Scopolamine 1.5 Mg Transdermal Patch) 1.5 mg TRDERM Q72H PRN PRN Reason: Nausea/Vomiting - Plan Plan (Free Text/Narrative):: Patient is doing very well s/p her laparoscopic appendectomy for unruptured appendicitis. The patient is eating well. Her preoperative pain and nausea are gone. We discussed the post operative discharge plan. She verbalized agreement and is cleared for discharge.
== END 2021-02-27 16:01 | disposition home or self-care (01) ==
LOC: MW.ED 19:41 → MW.SDS 22:56 → MW.MS 23:06 → MW.SDS 02-27 16:01
PROVIDERS: ATTEND Surgery
DX: K35.80 Unspecified acute appendicitis (principal); G43.909 Migraine, unspecified, not intractable, without status migrainosus; Z79.899 Other long term (current) drug therapy; Z87.891 Personal history of nicotine dependence; Z98.890 Other specified postprocedural states; Z20.822 Contact with and (suspected) exposure to COVID-19
CPT/HCPCS: 36415; 44970; 74177; 80053; 81003; 83605; 83690; 84703; 85025; 87040; 87635; 88307; 96365; 96374; 96375; 99285; A9270; C1776; J0131; J1100; J1170; J1885; J2250; J2270; J2405; J2543; J2704; J3010; J3490; J7030; J7120; Q9967; 00840; 99284; U0002